=== PATIENT | male | born 1950 | race Caucasian/White ===

== ENCOUNTER 2019-12-13 08:27 | Observation (INO) ==
--- NOTE | 2019-11-27 08:34 | PAT Medication Instructions ---
Medication Instructions Date of Service November 27, 2019 Home Medications Medication Instructions Recorded Judie Gudino #1 ea 11/27/19 allopurinol 300 mg tablet 300 mg PO QAM ascorbic acid (vitamin C) 1,000 mg tablet 500 mg PO BID atorvastatin 20 mg tablet 20 mg PO QAM benazepril 40 mg tablet 40 mg PO QAM loratadine 10 mg tablet 10 mg PO DAILY PRN metoprolol succinate 25 mg capsule sprinkle, ext. release 24 hr 25 mg PO QAM wwtyepem-bmr-aplnd acid 0.4 mg-lycopene 300 mcg-lutein 250 mcg tablet 1 tab PO QAM omeprazole 20 mg capsule,delayed release 20 mg PO QAM DO NOT take the morning of surgery ascorbic acid (vitamin C) 1,000 mg tablet 500 mg PO BID benazepril 40 mg tablet 40 mg PO QAM loratadine 10 mg tablet 10 mg PO DAILY PRN ckghdjin-epg-iutfs acid 0.4 mg-lycopene 300 mcg-lutein 250 mcg tablet 1 tab PO QAM Take morning of surgery With a small sip of water, OTHERWISE NOTHING TO EAT OR DRINK AFTER MIDNIGHT: allopurinol 300 mg tablet 300 mg PO QAM atorvastatin 20 mg tablet 20 mg PO QAM metoprolol succinate 25 mg capsule sprinkle, ext. release 24 hr 25 mg PO QAM omeprazole 20 mg capsule,delayed release 20 mg PO QAM Take evening before surgery ascorbic acid (vitamin C) 1,000 mg tablet 500 mg PO BID loratadine 10 mg tablet 10 mg PO DAILY PRN (if needed) Other Notes If you have any questions please call us at [phone] or [phone] or [phone] or [phone]
--- NOTE | 2019-11-27 11:03 | Anesthesiology Consultation ---
Date of Service November 27, 2019 Assessment & Plan (1) Encounter for pre-operative examination: COVID Status: As of 11/25 nurse assessment, patient denies travel to endemic area, known exposure/sick contacts, symptoms, or testing for coronavirus. Chart Review Chart Review: Acceptable Risk for Surgery and Patient seen in Pre Admission Testing Teaching & Discussion Instructed NPO after midnight before surgery, except medications with 15 cc of water. Medication instructions provided according to the PAT guidelines. History Surgery Operation Date: 12/13/19 11:30 Proposed Procedures p Left Anterior Total Hip Arthroplasty - Jaiden Mccurdy DO Height/Weight Height: 5 ft 10 in Weight: 101.7 kg Allergies Allergy/AdvReac Type Severity Reaction Status Date / Time No Known Allergies Allergy Verified 11/26/19 11:49 Medications Home Medications Medication Instructions Recorded Confirmed Last Taken allopurinol 300 mg tablet 300 mg PO QAM 08/28/19 11/27/19 Unknown ascorbic acid (vitamin C) 1,000 mg 500 mg PO BID 08/28/19 11/27/19 Unknown tablet atorvastatin 20 mg tablet 20 mg PO QAM 08/28/19 11/27/19 Unknown benazepril 40 mg tablet 40 mg PO QAM 08/28/19 11/27/19 Unknown loratadine 10 mg tablet 10 mg PO DAILY PRN 08/28/19 11/27/19 Unknown metoprolol succinate 25 mg capsule 25 mg PO QAM 08/28/19 11/27/19 Unknown sprinkle, ext. release 24 hr lyqdtrkt-mtf-eiqcq acid 0.4 1 tab PO QAM 08/28/19 11/27/19 Unknown mg-lycopene 300 mcg-lutein 250 mcg tablet omeprazole 20 mg capsule,delayed 20 mg PO QAM 08/28/19 11/27/19 Unknown release Wheeled Walker #1 ea 11/27/19 11/27/19 Unknown Past Medical History Medical History (Updated 11/27/19 @ 15:35 by Donnie Mo) Gout Hyperlipidemia Hypertension Obesity Sleep apnea CPAP HS Exercise / Class Metabolic Activity II 4-5 Yardwork/Stairs/Walk up hill (Denies CP or SOB with 1 FOS) Past Surgical History Surgical History History of carpal tunnel release LEFT History of esophagogastroduodenoscopy (EGD) WITH DILITATION History of herniorrhaphy Past Anesthesia History No Hx of Anesthesia Complications and No Family Hx of Anesthesia Complications History of PONV No Hx of PONV and No Hx of Motion Sickness Social History Smoking Status: Former smoker Do You Dip or Chew Tobacco: No Smoking End Date: QUIT 1971 Hx Alcohol Use: Yes Alcohol type: beer alcohol intake frequency: 3 or more drinks per day (some days none; drinks ~5days/wk) Hx Substance Use: No Review of Systems Pt denies any recent chest pain, shortness of breath, palpitations, cough, fever or URI. Physical Exam Vital Signs BP: 136/75 P: 87bpm SPO2: 97% RA T: 98.2 F R: 16 Constitutional + obese ENMT Mouth: + dental restorations (3 crowns); no chipped teeth and no loose teeth Thyromental Distance: > or= 3.5 Finger Breadths (3.5) Mallampati Class: II Neck + short neck, + limited neck extension and + facial hair (medium length sheldon, advised to trim) Respiratory normal respiratory effort Auscultation: lungs clear to auscultation bilaterally Cardiovascular Rate/Rhythm: regular rate and regular rhythm Heart Sounds: no murmur Extremities: no edema Testing Laboratory Results 11/27/19 11:13 11/27/19 11:13 PT 10.9 Seconds (9.0-12.0) 11/27/19 11:13 INR 1.0 (0.9-1.1) 11/27/19 11:13 APTT 29.9 Seconds (21.0-31.0) 11/27/19 11:13 Blood Type A Positive 11/27/19 11:13 Antibody Screen NEGATIVE 11/27/19 11:13 Electrocardiogram Date: 11/27/19 Findings: + NSR @ (79bpm with 1st degree AV block) Chest X-Ray Date: 11/27/19 FINDINGS: The cardiac and mediastinal contours are normal. There is no evidence of focal pulmonary consolidation. There is no evidence of failure. No pleural effusions are visualized.[Degenerative changes are present within the dorsal spine. There is minimal basilar atelectasis. IMPRESSION: No active disease in the chest. Stress Test Date: 11/15/18 Type: exercise Resting EF: 55-59% The stress echo is negative for inducible ischemia. Resting study: No resting LV segmental wall motion abnormalities. RV cavity is moderately dilated. RV systolic function is moderately reduced. No significant valvular disease is present. The proximal ascending thoracic aorta is mildly enlarged.
--- NOTE | 2019-11-27 11:29 | XRay Report ---
XR chest Pre-admission PA/Lat CLINICAL HISTORY: Preoperative chest COMPARISON STUDY: No previous studies for comparison. FINDINGS: The cardiac and mediastinal contours are normal. There is no evidence of focal pulmonary co nsolidation. There is no evidence of failure. No pleural effusions are visualized.[Degenerative hope es are present within the dorsal spine. There is minimal basilar atelectasis. IMPRESSION: No active disease in the chest. ACT 112: Negative or not required by law. Electronically signed by: Jason Murdock M.D. 11/27/2019 11:27 AM
[2019-11-27 12:45] LABS: Basophils # (auto) 0.03 K/uL (0-0.2); Basophils % (auto) 0.4 %; Eosinophils % (auto) 1.4 %; Hematocrit (blood only) 42.2 % (42-52); Hemoglobin 14.7 g/dL (14.0-18.0); Immature Granulocytes # (auto) 0.04 K/uL (0.00-0.02); Immature Granulocytes % (auto) 0.6 %; Lymphocytes # (auto) 1.67 K/uL (1.2-3.4); Lymphocytes % (auto) 23.2 %; Mean Corpuscular Hemoglobin 32.5 pg (25-34); Mean Corpuscular Hgb Conc 34.8 g/dL (32-36); Mean Corpuscular Volume 93.2 fL (80-100); Mean Platelet Volume 10.6 fL (7.4-10.4); Monocytes # (auto) 0.72 K/uL (0.11-0.59); Neutrophils # (auto) 4.65 K/uL (1.4-6.5); Neutrophils % (auto) 64.4 %; Platelet Count 273 K/uL (130-400); RDW Coefficient of Variation 12.9 % (11.5-14.5); Red Blood Count 4.53 M/uL (4.7-6.1); White Blood Count 7.21 K/uL (4.8-10.8)
[2019-11-27 13:00] LABS: Partial Thromboplastin Ratio 1.1; Partial Thromboplastin Time 29.9 Seconds (21.0-31.0); Prothrombin Time 10.9 Seconds (9.0-12.0)
[2019-11-27 13:12] LABS: BUN Creatinine Ratio 12.2 (10-20); Creatinine Clr Calc Pharmacy 95.5 ml/min; Est GFR (African American) 101.8; Est GFR (Non-African American) 87.9; Potassium 4.6 mmol/L (3.5-5.1)
--- NOTE | 2019-11-27 14:38 | Electrocardiogram Report ---
Test Reason : Blood Pressure : / mmHG Vent. Rate : 079 BPM Atrial Rate : 079 BPM P-R Int : 216 ms QRS Dur : 112 ms QT Int : 374 ms P-R-T Axes : 040 -15 037 degrees QTc Int : 428 ms Sinus rhythm with 1st degree A-V block Otherwise normal ECG No previous ECGs available Confirmed by Xander Crisostomo ([id number]) on 11/27/2019 2:37:46 PM Referred By: Jaiden Mccurdy Confirmed By:Xander Crisostomo
--- NOTE | 2019-12-11 07:19 | History & Physical Report ---
Date of Service December 11, 2019 Assessment & Plan (1) Osteoarthritis of left hip: We will proceed with a left anterior total hip arthroplasty. Postoperatively he will be started on aspirin for DVT prophylaxis and kept overnight in the hospital for postoperative medical management. He plans to use energy physical therapy upon discharge. Howie is a low risk for hip replacement surgery without any major comorbidities. Present on Admission?: Yes History of Present Illness Chief Complaint: Primary osteoarthritis of the left hip Primary Care Provider: Mylene Brown DO Howie is a pleasant 68-year-old male who is been having a greater than one-year history of increasing left hip pain. X-rays and clinical examination have been diagnostic for advanced osteoarthritis of the left hip. After failing conservative treatment, he has elected to proceed with a left anterior total hip arthroplasty. Allergies Allergy/AdvReac Type Severity Reaction Status Date / Time No Known Allergies Allergy Verified 11/26/19 11:49 Home Medications Home Medications Medication Instructions Recorded Confirmed Type allopurinol 300 mg tablet 300 mg PO QAM 08/28/19 11/27/19 History ascorbic acid (vitamin C) 1,000 mg 500 mg PO BID 08/28/19 11/27/19 History tablet atorvastatin 20 mg tablet 20 mg PO QAM 08/28/19 11/27/19 History benazepril 40 mg tablet 40 mg PO QAM 08/28/19 11/27/19 History loratadine 10 mg tablet 10 mg PO DAILY PRN 08/28/19 11/27/19 History metoprolol succinate 25 mg capsule 25 mg PO QAM 08/28/19 11/27/19 History sprinkle, ext. release 24 hr rigysbsr-oxo-uvoxx acid 0.4 1 tab PO QAM 08/28/19 11/27/19 History mg-lycopene 300 mcg-lutein 250 mcg tablet omeprazole 20 mg capsule,delayed 20 mg PO QAM 08/28/19 11/27/19 History release Wheeled Walker #1 ea 11/27/19 11/27/19 Rx Past Med/Surg History Medical History Gout Hyperlipidemia Hypertension Obesity Sleep apnea CPAP HS Surgical History History of carpal tunnel release LEFT History of esophagogastroduodenoscopy (EGD) WITH DILITATION History of herniorrhaphy Social History Preferred Language: Jordanian Communication Ability: Effective Foundry Operator Required: No Beliefs That Will Affect Care: None Current Living Situation: Spouse Feels Safe at Home: Yes Smoking Status: Former smoker Second Hand Exposure: Yes (IN SOCIAL EVENTS) ; Hx Alcohol Use: Yes Alcohol type: beer Hx Substance Use: No Review of Systems Review of Systems: All systems reviewed & are unremarkable except as noted in HPI & below Physical Exam Constitutional: WD/WN, vitals as above Eyes: PERRL, conjunctivae normal, anicteric sclerae ENMT: external ear and nose normal, oropharynx normal Neck: trachea midline, no thyromegaly Respiratory: normal respiratory effort Cardiovascular: RRR, no murmur, no edema Gastrointestinal (Abdomen): normal bowel sounds, soft, nontender, no hepatosplenomegaly Musculoskeletal: Physical examination of the left hip reveals decreased range of motion with flexion, internal and external rotation. There is significant groin pain with forced internal rotation of the hip his leg lengths are essentially equal. Psychiatric: A+Ox3, euthymic affect Results & Data Results & Data ([facility]) Diagnostic Findings Radiographs of the left hip and pelvis demonstrate advanced osteoarthritis with joint space narrowing osteophyte formation and gyfq-ol-ijve articulation. PG Care Time/CCT Total # of Minutes Spent Total Time Spent with Patient: Total time spent is greater than 50% in coordination of care (as documented) at patient's floor/unit and/or counseling patient: Coding Level of Care Code 12903 Initial Inpt Care Lvl 3 Diagnoses Osteoarthritis of left hip M16.12
[~2019-12-13 08:27] MED LIST: ACETAMINOPHEN 500 MG TAB PO SCH; CEFAZOLIN 2000MG 2,000 MG/15 ML SYR IV SCH; FAMOTIDINE 20 MG TAB PO SCH; GABAPENTIN 300 MG CAP PO SCH; LR 500ML BOLUS, THEN 15ML/HR IV SCH; LR 60ML/HR IV SCH; ROPIVACAINE 0.5% HCL/PF 150 MG, BUPIVACAINE 0.5% MPF 30 ML, EPINEPHrine 30MG/30ML (OR U... INSTIL SCH; TRANEXAMIC ACID 1,000 MG **IV Intra-op IV SCH; TRANEXAMIC ACID 1,000 MG **IV Pre-op IV SCH; dexAMETHasone 4 MG TAB PO SCH
--- NOTE | 2019-12-13 08:35 | History & Physical Bridge Note ---
Date of Service December 13, 2019 History & Physical Bridge Note I have examined the patient, reviewed the History & Physical and in the interval since the performance of the History & Physical I have noted the following changes of clinical significance: no changes noted
[2019-12-13] MEDS ORDERED: BUPIVACAINE 0.5 % 5 MG/1 ML PF 10ML VIAL ONE (09:03)
[2019-12-13] MEDS ORDERED: MIDAZOLAM HCL 1 MG/ML 2ML VIAL ONE ×3 (09:33→10:14)
[2019-12-13] MEDS ORDERED: fentaNYL citrate 100 MCG/2 ML VIAL ONE (09:33)
[2019-12-13] MEDS ORDERED: ORTHO JOINT ANESTHETIC ONE (09:46)
[2019-12-13] MEDS ORDERED: ePHEDrine sulfate 50 MG/ML AMP IV PRN (10:22)
[2019-12-13] MEDS ORDERED: ATROPINE SULFATE 0.1 MG/ML 10ML SYR IV PRN (10:22)
--- NOTE | 2019-12-13 12:06 | Operative Report ---
PG Post Operative Report Pre & Post Diagnosis Operation Date: 12/13/19 10:20 Pre-Op Diagnosis: LEFT HIP DEGENERATIVE JOINT DISEASE Post-Op Diagnosis: LEFT HIP DEGENERATIVE JOINT DISEASE I identified the patient and participated in the time-out.: Yes Procedure Operation Date: 12/13/19 10:20 Actual Procedures p Left Anterior Total Hip Arthroplasty(Left) - Jaiden Mccurdy DO Surgeon Jaiden Mccurdy DO Leno Sewer Jaiden Verdin PAC Estimated Blood Loss 300 Findings Consistent with Post-Op Diagnosis Specimens Left femoral head Complications none Disposition Disposition: Recovery Room Indications Brian is a pleasant 68-year-old male who presented my office with chronic increasing left hip and groin pain. X-rays and clinical examination were diagnostic for primary osteoarthritis of the left hip. After failing conservative treatment, he elected proceed with a left anterior total hip arthroplasty. Description of Procedure Implants used I used a Biomet Taperloc total hip arthroplasty system with a size 9 high offset micro Taperloc stem, a 50 mm G7 cup with a 25mm screw, an E1 polyethylene liner, a 36 mm ceramic head with a +3 neck. Brian arrived at the hospital for the above procedure. He was seen in the preoperative holding area and the operative extremity was identified and signed. He was given a spinal anesthetic, a preoperative antibiotic, and TXA. He was then taken back to the operating room and laid on the table in the supine position. He was given basic sedation. The operative leg was secured to a Puristst leg positioner. The hip was then prepped and draped in sterile fashion. A timeout was done and the patient and the operative extremity was properly identified. An anterior approach was used. Dissection was taken down through the fascia and the tensor muscle belly was retracted laterally and the rectus was retracted medially. The circumflex vessels were identified and ligated. The capsule was then incised and tagged for later repair. The femoral neck was then cut and the femoral head was removed. The acetabulum was exposed. Time was spent doing a complete circumferential labral release. Sequential reaming of the acetabulum up to a size 49 reamer was done. Final reamings were done under fluoroscopy to ensure appropriate version. A Biomet 50 mm G7 cup was then impacted into place. A single 25 mm screw was placed. The E1 polyethylene liner was then snapped into place. Surrounding soft tissues were then injected with 100 cc of an orthopedic pain control cocktail. The proximal femur was then exposed. Sequential broaching up to a size 9 broach was done. Off that broach a size 36 head with a +3 neck was trialed. The hip was reduced and fluoroscopic images showed anatomic alignment of the implants in acceptable length. The broach was removed. The final size 9 high offset micro Taperloc stem was then impacted into place. A ceramic 36 mm head with a +3 neck was then impacted onto the stem and the hip was reduced. Final fluoroscopic images showed anatomic alignment of the hip. The capsule was then closed with #1 Vicryl suture. A dilute betadyne lavage was then done for 3 minutes. The joint was then irrigated with normal saline solution. The fascia was closed with #1 PDS suture. Skin was closed with 2-0 Vicryl, trudy, and a Mary VAC dressing. He was then transferred to a hospital bed and taken to the post anesthesia care unit in stable condition. He tolerated the procedure well. Jaiden Verdin PA-C, was present for the entire procedure. He was critical for patient positioning, prepping, draping, retraction exposure, wound closure and application of sterile dressing. I attest to the content of the Intraoperative Record and any orders documented therein. Any exceptions are noted below.
[2019-12-13] MEDS ORDERED: PROPOFOL IV EMULSION 10 MG/ML 20 ML VIAL IV ONE (12:14)
--- NOTE | 2019-12-13 12:59 | Anesthesiology Progress Note ---
Date of Service December 13, 2019 Anesthesia Post Procedure Vital Signs Vital Signs: Temp Pulse Pulse Resp BP BP Pulse Ox 12/13/19 12:50 72 16 131/76 97 12/13/19 12:40 69 16 132/73 97 12/13/19 12:30 36.4 C L 73 16 136/86 99 12/13/19 09:12 36.7 C 83 20 156/89 H 98 Transfer of Care Handoff Completed per policy Notes Mental Status: alert / awake / arousable and participated in evaluation Nausea / Vomiting: adequately controlled Pain: adequately controlled Airway Patency, RR, SpO2: stable & adequate BP & HR: stable & adequate Hydration State: stable & adequate Neuraxial Anesthesia: was administered and sensory block is resolving Anesthetic Complications: no major complications apparent and Pt Satisfied with anesthetic care
--- NOTE | 2019-12-13 13:15 | XRay Report ---
AP PELVIS, CROSSTABLE LATERAL LEFT HIP History: Left total hip arthroplasty. Degenerative arthritis. Postop. FINDINGS: The patient is status post a left total hip arthroplasty. The hardware is intact. No fractu re or dislocation. Skin trudy and surgical drains are in place. IMPRESSION: Left total hip arthroplasty. No evidence for hardware complication. ACT 112: Negative or not required by law. Electronically signed by: Jose Durant M.D. 12/13/2019 1:13 PM
[2019-12-13] MEDS ORDERED: METOCLOPRAMIDE HCL INJ 5 MG/ML 2 ML VIAL IV PRN (13:30)
[2019-12-13] MEDS ORDERED: HYDROmorphone INJ 0.5 MG/0.5 ML SYR IV PRN (13:30)
[2019-12-13] MEDS ORDERED: bisacodyL 10 MG SUPP PR PRN (13:30)
[2019-12-13] MEDS ORDERED: LORATADINE 10 MG TAB PO PRN (13:30)
[2019-12-13] MEDS ORDERED: ONDANSETRON INJ 2 MG/ML 2 ML VIAL IV PRN (13:30)
[2019-12-13] MEDS ORDERED: [UNRECOGNIZED DRUG - OTHER] SCH (13:30)
[2019-12-13] MEDS ORDERED: OXYCODONE HCL IR 5 MG TAB (IMMEDIATE RELEASE) PO PRN (13:30)
[2019-12-13] MEDS ORDERED: WALKER SCH (13:30)
[2019-12-13] MEDS ORDERED: NALOXONE HCL 0.4 MG/1 ML VIAL/CARP IV PRN (13:30)
[2019-12-13] MEDS ORDERED: MAGNESIUM HYDROXIDE SUSP 30 ML UDC PO PRN (13:30)
[2019-12-13] MEDS ORDERED: SODIUM CHLORIDE 0.9% 1000ML 1,000 ML IV SCH (13:45)
[2019-12-13] MEDS ORDERED: LIDOCAINE HCL 2% 2 ML VIAL/AMP(20MG/ML) INFIL ONE (14:31)
[2019-12-13] MEDS: ACETAMINOPHEN 500 MG TAB PO SCH ×2 (14:39→21:53)
[2019-12-13] MEDS: KETOROLAC TROMETHAMINE 15 MG/ML VIAL IV SCH ×2 (14:40→19:27)
--- NOTE | 2019-12-13 14:50 | Fluoroscopy Report ---
FL hip LT 1V CLINICAL HISTORY: LEFT ANTERIOR HIP COMPARISON STUDY: None. FLUOROSCOPY TIME: 27 seconds. FINDINGS: 2 fluoroscopic spot images of the left hip demonstrate a left total hip arthroplasty. The h ardware appears intact. No fracture or dislocation. IMPRESSION: Fluoroscopy provided for left total hip arthroplasty. ACT 112: Negative or not required by law. Electronically signed by: Jose Durant M.D. 12/13/2019 2:49 PM
[2019-12-13] MEDS: CEFAZOLIN 2000MG 2,000 MG/15 ML SYR IV SCH (17:39)
[2019-12-13] MEDS: DOCUSATE SODIUM 100 MG CAP PO SCH (20:36)
[2019-12-13] MEDS: ASPIRIN 81 MG ECTAB PO SCH (20:37)
[2019-12-13] MEDS: ASCORBIC ACID 500 MG TAB PO SCH (20:37)
[2019-12-13] MEDS ORDERED: SENNA 8.6 MG TAB PO SCH (21:00)
[2019-12-14] MEDS: KETOROLAC TROMETHAMINE 15 MG/ML VIAL IV SCH ×2 (02:54→09:35)
[2019-12-14] MEDS: CEFAZOLIN 2000MG 2,000 MG/15 ML SYR IV SCH (02:54)
[2019-12-14] MEDS: ACETAMINOPHEN 500 MG TAB PO SCH (05:51)
--- NOTE | 2019-12-14 06:23 | Orthopedic Progress Note ---
Date of Service December 14, 2019 Assessment & Plan (1) History of total left hip arthroplasty: Overall he is doing very well. Is not having much pain in the left hip. He will be seen by physical therapy this morning for ambulation and range of motion exercises. He can be discharged home later today. He is on aspirin for DVT prophylaxis. He will follow-up with orthopedics in 2 weeks. Present on Admission?: Yes Subjective Howie was seen and examined at bedside this morning. Overall he is doing very well. He is Pain in the left hip. He has been up and ambulating around the nurses station. He has no complaints. Physical Exam Musculoskeletal: On physical examination of the left hip, the Mary VAC dressing is to suction. His leg lengths are equal. He has active dorsiflexion and plantarflexion of his left ankle. Sensation is intact. Results & Data ([facility]) Vital Signs (Past 12 Hours) Vital Signs Temp Pulse Resp BP Pulse Ox 12/14/19 03:30 36.8 C 79 14 146/75 H 98 12/13/19 23:12 36.8 C 92 H 14 148/78 H 98 12/13/19 19:07 36.7 C 102 H 16 132/91 Laboratory Results H & H 11/27/19 Range/Units 11:13 Hgb 14.7 (14.0-18.0) g/dL Hct 42.2 (42-52) % Coagulation 11/27/19 Range/Units 11:13 INR 1.0 (0.9-1.1) Diagnostic Findings Postoperative x-rays of the left hip show the prosthesis to be in anatomic alignment without any evidence of fracture, dislocation, or loosening. PG Care Time/CCT Total # of Minutes Spent Total Time Spent with Patient: Total time spent is greater than 50% in coordination of care (as documented) at patient's floor/unit and/or counseling patient: Coding Level of Care Code None Diagnoses History of total left hip arthroplasty Z96.642
--- NOTE | 2019-12-14 06:24 | Discharge Summary ---
Date of Service December 14, 2019 Admission HPI Per Admitting Provider Howie is a pleasant 68-year-old male who is been having a greater than one-year history of increasing left hip pain. X-rays and clinical examination have been diagnostic for advanced osteoarthritis of the left hip. After failing conservative treatment, he has elected to proceed with a left anterior total hip arthroplasty. Principal Diagnosis Left total hip arthroplasty Discharge Data Allergies Allergy/AdvReac Type Severity Reaction Status Date / Time No Known Allergies Allergy Verified 12/13/19 09:33 Consultations 12/14/19 08:00 Consult Case Management - Discharge Planning Routine Procedures Performed Operation Date: 12/13/19 10:20 Actual Procedures p Left Anterior Total Hip Arthroplasty(Left) - Jaiden Mccurdy DO Ordered Studies 12/13/19 10:20 FL fluoroscopy <1hr Routine FL hip LT 1V Routine Hospital Course (1) History of total left hip arthroplasty: On December 13, [address] [facility] and underwent a left anterior total hip arthroplasty without complication. He had a spinal anesthetic. Postoperatively he was started on aspirin for DVT prophylaxis and transferred to the general orthopedic floors. His hospital course was uneventful. On postop day #1 his H&H was stable and his pain was well controlled. He was able to participate well with physical therapy doing ambulation and range of motion exercises. He was then discharged home. He will follow-up with orthopedics in 2 weeks. Total Time Total Time Spent Total Time Spent (In Minutes): 20 Discharge Plan Discharge Items Patient Disposition: Home - Home Health Services Reason For Visit: LEFT HIP DEGENERATIVE JOINT DISEASE Discharge Diagnosis: Left total hip arthroplasty Activity: As commented below Non-emergency contact: Surgeon Call non-emergency contact if: your wound has increased redness and your wound has increased drainage Follow-up/Referrals: Mylene Brown DO [Primary Care Provider] - Diet: Regular Addtl Attending Provider Instructions: Activity and Therapy Recommendations: * If you are using [facility] then therapy will be provided at your home until they feel you have accomplished all of your goals. * If you are using [facility] then Physical Therapy will be provided until they feel you are ready to start Outpatient Physical Therapy. * If you are not using home therapy then Outpatient Physical Therapy should start about 3-5 days from your day of surgery. Therapy will last about 6-10 weeks * You were shown a series of exercises in the hospital. Do these exercises three times each day including the exercises you were shown in physical therapy. * Get up and walk several times each day.~ For the first four weeks, try not to stand or walk for more than one hour at a time. If you do stand or walk for more than one hour, you will not hurt anything, but your leg will likely swell.~~ * As you feel comfortable, you may change from the walker or crutches to a cane and~then to independent walking. Medications: * Narcotic You will likely be sent home from the hospital with a prescription for the narcotic pain medication that worked best throughout your stay. * Aspirin Most patients will be required to take Aspirin 81mg twice a day for 6 weeks after surgery. This is obtained [id number] and a prescription is not necessary. * Other medications may be prescribed for specific circumstances. If you have any questions, please call the office at . * Resume previous home medications unless otherwise instructed TEDs/Elastic Stockings: The white elastic stockings help limit swelling and prevent blood clots from forming in your legs. The more you wear them, the more they work. Wear them for six weeks. Dressing Care: You will likely have a purple VAC dressing after surgery. This dressing will keep the incision dry and promote early healing. After about 7 days the batteries will wear out and the VAC will lose suction. Simply remove the dressing at that time and throw everything away, including the small suction machine. Then, you may leave the trudy open to air or cover them with a dry dressing so they do not rub on your pants. The trudy will be removed at your 2 week follow-up appointment. Showering: You may shower immediately with the purple VAC dressing. Let the shower spray hit your opposite side and slowly pat the plastic dry. Do not soak the dressing. After the dressing is removed you may shower normally with the trudy exposed. Let soapy water run over the trudy and pat them dry. Things To Watch For: * Drainage from the incision site that occurs more than one week after your surgery. * Increased redness at the incision site. * Fever above 102 degrees Fahrenheit. * Unusual chest pain or shortness of breath. * Call [facility] at with any of the above problems Follow-Up Visit: Follow-up with Dr. Mccurdy's PA (Jaiden Verdin) 2-3 weeks after your day of surgery. He will remove your trudy and answer any questions. If you have any additional questions or concerns, Dr Mccrudy is usually in the office at the same time and will be available An appointment was probably scheduled when you signed-up for surgery in the office. If you have any questions call Office Instructions: More detailed instructions as well as Frequently Asked Questions were provided in a folder by our office when you signed-up for surgery. Please review these instructions when you get home. If you have any further questions or concerns, please feel free to call the office at [phone] Pending Studies at Discharge: No Stand-Alone Forms: My [employer] Smoking Cessation Medications and DC Order Prescriptions: New oxycodone 5 mg Tablet 5 mg PO Q4H PRN (Reason: pain) Qty: 30 RF: 0 aspirin 81 mg Tablet,Delayed Release (Dr/Ec) 81 mg PO BID 42 Days Qty: 0 RF: 0 Continued allopurinol 300 mg tablet 300 mg PO QAM RF: 0 atorvastatin 20 mg tablet 20 mg PO QAM RF: 0 benazepril 40 mg tablet 40 mg PO QAM RF: 0 loratadine [Allergy Relief (loratadine)] 10 mg tablet 10 mg PO DAILY PRN (Reason: Allergy Symptoms) RF: 0 metoprolol succinate 25 mg capsule,sprinkle,ER 24hr 25 mg PO QAM RF: 0 omeprazole 20 mg capsule,delayed release(DR/EC) 20 mg PO QAM RF: 0 ascorbic acid (vitamin C) 1,000 mg tablet 500 mg PO BID RF: 0 Centrum Silver 0.4-300-250 mg-mcg-mcg tablet 1 tab PO QAM RF: 0 (DME) Wheeled Walker Misc See Rx Instructions .ROUTE .MEDSUPPLY Qty: 1 RF: 0 Discharge Orders: Discharge Order (Routine); Ordered 12/14/19 Ordered By: Jaiden Mccurdy Admission Data Admit Date/Time: 12/13/19 12:34 Attending Provider: Jaiedn Mccurdy Admit Provider: Jaiden Mccurdy Primary Care Provider: Mylene Brown Coding Level of Care Code D/C Day Management <30 mins Diagnoses History of total left hip arthroplasty Z96.642
[2019-12-14 07:08] LABS: Eosinophils # (auto) 0.01 K/uL (0-0.5); Eosinophils % (auto) 0.1 %; Hematocrit (blood only) 38.7 % (42-52); Hemoglobin 13.2 g/dL (14.0-18.0); Immature Granulocytes # (auto) 0.03 K/uL (0.00-0.02); Immature Granulocytes % (auto) 0.2 %; Lymphocytes # (auto) 1.38 K/uL (1.2-3.4); Lymphocytes % (auto) 10.2 %; Mean Corpuscular Hemoglobin 31.9 pg (25-34); Mean Corpuscular Hgb Conc 34.1 g/dL (32-36); Mean Corpuscular Volume 93.5 fL (80-100); Mean Platelet Volume 10.2 fL (7.4-10.4); Monocytes % (auto) 9.6 %; Neutrophils % (auto) 79.9 %; Platelet Count 303 K/uL (130-400); RDW Coefficient of Variation 12.8 % (11.5-14.5); Red Blood Count 4.14 M/uL (4.7-6.1); White Blood Count 13.52 K/uL (4.8-10.8)
[2019-12-14 07:35] LABS: BUN Creatinine Ratio 18.1 (10-20); Calcium 8.8 mg/dl (8.5-10.1); Creatinine Clr Calc Pharmacy 83.1 ml/min; Est GFR (African American) 90.2; Est GFR (Non-African American) 77.8; Potassium 4.1 mmol/L (3.5-5.1)
[2019-12-14] MEDS ORDERED: dexAMETHasone 4 MG TAB PO SCH (08:00)
[2019-12-14] MEDS ORDERED: METOPROLOL SUCC 25MG EXT REL TAB PO SCH (09:00)
[2019-12-14] MEDS ORDERED: PANTOprazole 40 MG TAB PO SCH (09:00)
[2019-12-14] MEDS ORDERED: allopurinoL 300 MG TAB PO SCH (09:00)
[2019-12-14] MEDS ORDERED: ENALAPRIL MALEATE 10 MG TAB PO SCH (09:00)
[2019-12-14] MEDS ORDERED: MULTIVITAMIN TAB PO SCH (09:00)
[2019-12-14] MEDS ORDERED: ATORVASTATIN 20 MG TAB PO SCH (09:00)
[2019-12-14] MEDS: ASPIRIN 81 MG ECTAB PO SCH (09:30)
[2019-12-14] MEDS: DOCUSATE SODIUM 100 MG CAP PO SCH (09:30)
[2019-12-14] MEDS: ASCORBIC ACID 500 MG TAB PO SCH (09:34)
== END 2019-12-14 10:32 | disposition home health service (06) ==
LOC: ASU 08:27 → 3E 12:34 → INTOOBSV 12:34

== ENCOUNTER 2020-02-05 15:25 | Inpatient (IN) ==
[2020-02-05] MEDS ORDERED: HYDROmorphone INJ 1 MG/ML SYRINGE IV STA ×2 (15:59→16:44)
--- NOTE | 2020-02-05 16:05 | Emergency Department Note ---
History of Present Illness General Chief complaint: Fall Stated complaint: FALL, L LEG PAIN Time Seen by Provider: 02/05/20 15:48 History of Present Illness Maximum Pain Intensity: 2 This is a 69-year-old male that presents to the emergency department via ambulance accompanied by with complaints "fall, left leg pain". The patient states that earlier today he was at home, in his garage on a ladder about 2 feet off of the ground when he notes that he missed the bottom rung and stepped backwards and noted that he then fell. He believes he struck his head but now notes pain in the left hip and left thigh region that he currently rates as a 2/10 but prior to arrival was much worse. He has received a total of 200 mcg of fentanyl in route. The fall was suspected to be around 1 PM today. Patient denies any recent fevers or chills. He denies any current chest or abdominal pain. No back pain. He states his only pain is in the left thigh region extending from the left hip to the left knee. He underwent total left hip arthroplasty on 12/13/[address] Mccurdy here at [facility]. Home Medications Home Medications Medication Instructions Recorded Confirmed Type allopurinol 300 mg tablet 300 mg PO QAM 08/28/19 02/05/20 History ascorbic acid (vitamin C) 1,000 mg 500 mg PO BID 08/28/19 02/05/20 History tablet atorvastatin 20 mg tablet 20 mg PO QAM 08/28/19 02/05/20 History benazepril 40 mg tablet 40 mg PO QAM 08/28/19 02/05/20 History loratadine 10 mg tablet 10 mg PO DAILY PRN 08/28/19 02/05/20 History metoprolol succinate 25 mg capsule 25 mg PO QAM 08/28/19 02/05/20 History sprinkle, ext. release 24 hr fefaavhc-jkb-myrsi acid 0.4 1 tab PO QAM 08/28/19 02/05/20 History mg-lycopene 300 mcg-lutein 250 mcg tablet omeprazole 20 mg capsule,delayed 20 mg PO QAM 08/28/19 02/05/20 History release Allergies Allergy/AdvReac Type Severity Reaction Status Date / Time No Known Allergies Allergy Verified 02/05/20 17:17 Past Med/Surg History Medical History Gout Hyperlipidemia Hypertension Obesity Sleep apnea CPAP HS Surgical History History of carpal tunnel release LEFT History of esophagogastroduodenoscopy (EGD) WITH DILITATION History of herniorrhaphy History of total left hip arthroplasty (~12/2019) Social History Smoking Status: Former smoker Second Hand Exposure: Yes (social occasions); Hx Alcohol Use: Yes Alcohol type: beer Hx Substance Use: No Preferred Language: Bengali Communication Ability: Effective 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 Required: No Beliefs That Will Affect Care: None Current Living Situation: Spouse Feels Safe at Home: Yes Review of Systems A total of 10 systems reviewed and were otherwise negative Physical Exam Vital Signs Vital Signs - 24 hr 02/05/20 15:46 02/05/20 16:35 02/05/20 17:18 Temperature 37.0 C Temperature Source Oral Pulse Rate 84 93 H Pulse Rate from SpO2 Sensor 94 H Respiratory Rate 20 7 L Respiratory Effort / Characteristics Non-Labored Spontaneous Respiratory Depth Normal Respiratory Pattern Regular Blood Pressure 154/82 H Blood Pressure Mean 106 Pulse Oximetry 98 Oxygen Delivery Method Room Air Room Air Room Air Sepsis Recent Fever Within 48 Hours No Sepsis New/Unexplained Change in Mental Status N/A Sepsis Action Taken by Nursing No Action Required VITAL SIGNS - Vital signs and nursing notes were reviewed. Hypertensive, otherwise stable. GENERAL -69-year-old male appearing his stated age. Communicates well with provider and answers questions appropriately. SKIN - Gross examination of the entire body surface demonstrates no lacerations to the body surface. No evidence of open fracture to the left leg. There is edema circumferentially noted to the left leg without any bruising at this time. There is also dried blood in the dependent portion of the patient's right external ear. HEAD - Normocephalic, Atraumatic. No Zamora's Sign or Raccoon's Eyes. No depressed skull fractures palpable. EYES - PERRL with EOMI bilaterally. Without subconjunctival hemorrhage. Palpebral conjunctiva pink and moist with no injection. EARS - No deformities of external structures noted on gross examination bilaterally. No hemotympanum present. No tympanic perforation noted. Handle of malleus, umbo, cone of light, pars tensa/flaccid all easily visualized. NOSE - Midline and without cyanosis. No epistaxis or clear watery discharge noted. Septum midline without deviation. No septal hematoma noted. No overlying ecchymosis noted. MOUTH/OROPHARYNX - Without perioral cyanosis. Tongue midline with equal elevation of palate bilaterally. No blood noted in the oropharynx. No tonsillar hypertrophy, erythema, or exudates noted. No dental fractures noted. NECK -no C-spine tenderness. LUNGS - Chest wall symmetric without accessory muscle use, intercostals retractions, or central cyanosis. No tenderness with deep inspiration noted against the examiner's applied pressure to the lateral chest savage. Normal vesicular breath sounds CTA B/L. No wheezes, rales, or rhonchi appreciated. CARDIAC - RRR with S1/S2. No murmur, rubs, or gallops appreciated. ABDOMEN - Abdominal contour normal and without pulsations or visible masses. BS normoactive all four quadrants. No rebound tenderness or guarding noted. Negative Maxi's or Lam Shaver's Signs. No tenderness, palpable masses, hepatosplenomegaly, or ascites noted. EXTREMITIES - No gross deformities noted of the extremities. There is tenderness to palpation overlying the patient's left lateral hip extending to the left knee with circumferential edema noted when compared to the right. Patient is very tender on the left lateral femur region. +5/5 strength noted in UE/LE bilaterally. Left lower extremity dorsalis pedis pulse within normal limits. Patient is able to plantarflex and dorsiflex the left foot/ankle. Left leg is shortened and externally rotated. Cap refill of the toes of the left foot within normal limits as well. No tenderness to palpation distal to the left knee. NEUROLOGIC - Cranial nerves II through XII grossly intact. Sensory intact to light touch throughout. PSYCH - A&Ox3 and cooperates fully with examiner. Pt is very pleasant and interacts well with examiner. Course Administered Medications Ascorbic Acid (Vitamin C) 500 mg PO BID [facility] Stop: 03/06/20 20:59 Last Admin: 02/05/20 21:28 Dose: 500 mg Documented by: [id number] Docusate Sodium (Colace) 100 mg PO BID [facility] Stop: 03/06/20 20:59 Last Admin: 02/05/20 21:28 Dose: 100 mg Documented by: [id number] Sodium Chloride (Nss 1000ml) 1,000 mls @ 80 mls/hr IV .[id number] [facility] Stop: 03/06/20 17:29 Last Admin: 02/05/20 21:27 Dose: 80 mls/hr Documented by: [id number] Discontinued Medications Hydromorphone HCl (Dilaudid) 1 mg IV NOW STA Stop: 02/05/20 16:00 Last Admin: 02/05/20 16:13 Dose: 1 mg Documented by: [id number] Hydromorphone HCl (Dilaudid) 1 mg IV NOW STA Stop: 02/05/20 16:45 Last Admin: 02/05/20 16:45 Dose: 1 mg Documented by: [id number] Ondansetron HCl (Zofran) 4 mg IV NOW STA Stop: 02/05/20 17:41 Last Admin: 02/05/20 17:43 Dose: 4 mg Documented by: [id number] Medical Decision Making Laboratory Data Result diagrams: 02/05/20 16:16 02/05/20 16:16 Lab Results 02/05/20 02/05/20 02/05/20 Range/Units 16:16 16:16 16:16 WBC 14.91 H (4.8-10.8) K/uL RBC 4.17 L (4.7-6.1) M/uL Hgb 13.1 L (14.0-18.0) g/dL Hct 37.6 L (42-52) % MCV 90.2 (80-100) fL MCH 31.4 (25-34) pg MCHC 34.8 (32-36) g/dL RDW Std Deviation 42.4 (36.4-46.3) fL RDW Coeff of Maria 13.0 (11.5-14.5) % Plt Count 283 (130-400) K/uL MPV 10.2 (7.4-10.4) fL Immature Gran % (Auto) 0.3 % Neut % (Auto) 80.9 % Lymph % (Auto) 11.1 % Boyle % (Auto) 6.4 % Eos % (Auto) 1.1 % Baso % (Auto) 0.2 % Neut # (Auto) 12.07 H (1.4-6.5) K/uL Lymph # (Auto) 1.65 (1.2-3.4) K/uL Boyle # (Auto) 0.95 H (0.11-0.59) K/uL Eos # (Auto) 0.16 (0-0.5) K/uL Baso # (Auto) 0.03 (0-0.2) K/uL Immature Gran # (Auto) 0.05 H (0.00-0.02) K/uL PT 11.5 (9.0-12.0) Seconds INR 1.1 (0.9-1.1) APTT 28.2 (21.0-31.0) Seconds PTT Ratio 1.0 Sodium 132 L (136-145) mmol/L Potassium 4.0 (3.5-5.1) mmol/L Chloride 101 (98-107) mmol/L Carbon Dioxide 24 (21-32) mmol/L Anion Gap 6.0 (3-11) BUN 12 (7-18) mg/dl Creatinine 0.84 (0.6-1.4) mg/dl Est Cr Clr Drug Dosing 104.0 ml/min Est GFR ( Amer) 102.1 Est GFR (Non-Af Amer) 88.1 BUN/Creatinine Ratio 13.7 (10-20) Glucose 112 H (70-99) mg/dl Calcium 8.7 (8.5-10.1) mg/dl Magnesium 1.7 L (1.8-2.4) mg/dl Total Bilirubin 0.5 (0.2-1) mg/dl AST 15 (15-37) U/L ALT 25 (12-78) U/L Alkaline Phosphatase 65 (45-117) U/L Total Protein 6.5 (6.4-8.2) gm/dl Albumin 3.5 (3.4-5.0) gm/dl Globulin 3.0 (2.5-4.0) gm/dl Albumin/Globulin Ratio 1.2 (0.9-2) Blood Type Antibody Screen 02/05/20 Range/Units 16:16 WBC (4.8-10.8) K/uL RBC (4.7-6.1) M/uL Hgb (14.0-18.0) g/dL Hct (42-52) % MCV (80-100) fL MCH (25-34) pg MCHC (32-36) g/dL RDW Std Deviation (36.4-46.3) fL RDW Coeff of Maria (11.5-14.5) % Plt Count (130-400) K/uL MPV (7.4-10.4) fL Immature Gran % (Auto) % Neut % (Auto) % Lymph % (Auto) % Boyle % (Auto) % Eos % (Auto) % Baso % (Auto) % Neut # (Auto) (1.4-6.5) K/uL Lymph # (Auto) (1.2-3.4) K/uL Boyle # (Auto) (0.11-0.59) K/uL Eos # (Auto) (0-0.5) K/uL Baso # (Auto) (0-0.2) K/uL Immature Gran # (Auto) (0.00-0.02) K/uL PT (9.0-12.0) Seconds INR (0.9-1.1) APTT (21.0-31.0) Seconds PTT Ratio Sodium (136-145) mmol/L Potassium (3.5-5.1) mmol/L Chloride (98-107) mmol/L Carbon Dioxide (21-32) mmol/L Anion Gap (3-11) BUN (7-18) mg/dl Creatinine (0.6-1.4) mg/dl Est Cr Clr Drug Dosing ml/min Est GFR ( Amer) Est GFR (Non-Af Amer) BUN/Creatinine Ratio (10-20) Glucose (70-99) mg/dl Calcium (8.5-10.1) mg/dl Magnesium (1.8-2.4) mg/dl Total Bilirubin (0.2-1) mg/dl AST (15-37) U/L ALT (12-78) U/L Alkaline Phosphatase (45-117) U/L Total Protein (6.4-8.2) gm/dl Albumin (3.4-5.0) gm/dl Globulin (2.5-4.0) gm/dl Albumin/Globulin Ratio (0.9-2) Blood Type A Positive Antibody Screen NEGATIVE Imaging Data Radiologist's Impression: XR chest 1V portable CLINICAL HISTORY: Chest pain status post trauma COMPARISON STUDY: 11/27/2019 FINDINGS: The study is performed in a supine fashion. The cardiac and mediastinal contours appear normal given the technique. There is no focal pulmonary consolidation. There are no significant pleural effusions. There is no pneumothorax identified on the supine study.[ IMPRESSION: No active disease in the chest. ACT 112: Negative or not required by law. Electronically signed by: Jason Murdock M.D. 02/05/2020 5:00 PM SINGLE VIEW PELVIS; 2 VIEWS LEFT FEMUR CLINICAL HISTORY: Fall. Left leg injury. FINDINGS: An AP supine view of the pelvis with AP and crosstable lateral views of the left femur are obtained. Comparison is made to study dated 12/13/2019. The skeletal structures are heterogeneously osteopenic. No fracture is seen involving the right hip or the bony pelvis. A bipolar left hip arthroplasty is in near-anatomic alignment. There is a comminuted spiral fracture of the proximal left femoral shaft located at and below the arthroplasty stem. There are laterally distracted fragments. The distal femoral shaft is distracted laterally by approximately 2.5 cm. There is also overriding of the fragments. Overlying soft tissue edema is noted. The left knee joint is grossly maintained. Mild degenerative joint space narrowing seen in the right hip. IMPRESSION: 1. There is a comminuted, distracted, and overriding spiral fracture of the proximal femoral shaft as above. This is located at and below the level of the left hip arthroplasty stem. 2. No fracture is seen involving the right hip or the bony pelvis. Electronically signed by: Ron Bryant M.D. 02/05/2020 5:00 PM SINGLE VIEW PELVIS; 2 VIEWS LEFT FEMUR CLINICAL HISTORY: Fall. Left leg injury. FINDINGS: An AP supine view of the pelvis with AP and crosstable lateral views of the left femur are obtained. Comparison is made to study dated 12/13/2019. The skeletal structures are heterogeneously osteopenic. No fracture is seen involving the right hip or the bony pelvis. A bipolar left hip arthroplasty is in near-anatomic alignment. There is a comminuted spiral fracture of the proximal left femoral shaft located at and below the arthroplasty stem. There are laterally distracted fragments. The distal femoral shaft is distracted laterally by approximately 2.5 cm. There is also overriding of the fragments. Overlying soft tissue edema is noted. The left knee joint is grossly maintained. Mild degenerative joint space narrowing seen in the right hip. IMPRESSION: 1. There is a comminuted, distracted, and overriding spiral fracture of the proximal femoral shaft as above. This is located at and below the level of the left hip arthroplasty stem. 2. No fracture is seen involving the right hip or the bony pelvis. Electronically signed by: Ron Bryant M.D. 02/05/2020 5:[address] head/brain wo con CLINICAL HISTORY: Head pain status post trauma COMPARISON STUDY: No previous studies for comparison. TECHNIQUE: Axial CT of the brain is performed from the vertex to the skull base. IV contrast was not administered for this examination. A dose lowering technique was utilized adhering to the principles of ALARA. CT DOSE: FINDINGS: No intra or extra-axial mass lesions are visualized. There is no CT evidence of acute cortical infarction. There is no evidence of midline shift. There is no acute hemorrhage. No calvarial fractures are visualized. There is no evidence of pathologic ventricular dilatation. There is no evidence of acute sinusitis IMPRESSION: No acute intracranial findings ACT 112: Negative or not required by law. Electronically signed by: Jason Murdock M.D. 02/05/2020 5:[address] OF THE CERVICAL SPINE CLINICAL HISTORY: Neck pain status post trauma COMPARISON STUDY: MRI the cervical spine dated 04/21/2013 CT DOSE: 1100.84 mGy.cm TECHNIQUE: CT scan of the cervical spine was performed from the skull base to the thoracic inlet. Images are reviewed in the axial, sagittal, and coronal planes. IV contrast was not administered for this examination. A dose lowering technique was utilized adhering to the principles of ALARA. FINDINGS: The visualized portions of the lung apices reveal no evidence of pneumothorax. The prevertebral soft tissues are normal. No fractures or subluxations are visualized. There are multilevel degenerative changes IMPRESSION: No evidence of acute fracture or traumatic subluxation. ACT 112: Negative or not required by law. Electronically signed by: Jason Murdock M.D. 02/05/2020 5:15 PM [facility] Narrative Patient was seen and evaluated as above in room C8. Review was performed of nursing notes and vital signs. I did review pertinent previous visits and p atient history. After obtaining a thorough history and physical examination the above work up was performed. He presents to us today via ambulance status post fall. This appears to be a low-energy mechanism of injury however he does have left hip pain that is isolated. History is significant for that of total left hip arthroplasty December 12 of this year. The incision site is well-healed and there is no evidence open fracture. There is marked edema to the left proximal thigh circumferentially. No evidence of compartment syndrome at this time and he is neurovascularly intact distal to the suspected periprosthetic hip fracture. Chest x-ray as well as pelvis and femur x-ray were obtained. There is a comminuted, distracted and overriding spiral fracture of the proximal femoral shaft. This is located at and below the level of the left hip arthroplasty stem. A CT scan was also obtained of the head and C-spine secondary to mechanism of injury. Results of these as above. This was nega tive. Based on labs were also obtained. Leukocytosis 14.91 secondary to likely acute phase reactant fracture. Hemoglobin 13.1. No evidence of emergent metabolic disturbance. Sodium 132. No coagulopathy identified with PT/INR. Type and screen ordered. Patient did receive 200 mcg of fentanyl in route and received additional IV Dilaudid here. Shortly after the x-rays were taken I did reach out to the on-call orthopedic surgeon, Dr. Brooks. He reviewed the x- rays and called back and will admit the patient and Dr. Mccurdy will see the patient later today. Patient was very happy with this and I also discussed options in regard to Carmona catheter versus bedside urinal and the patient pref ers a Carmona catheter. This was ordered. Please refer to further documentation regarding his stay. While in the department, I personally reevaluated the patient several times and each time the patient was found to be resting comfortably after the pain medication. The patient was educated upon management, educated upon todays findings/results. Case was discussed with the attending physician. In the evaluation and treatment of this patient, the following differential diagnoses were considered: Hip Fracture, Hip Dislocation, Greater Trochanteric Bursitis, Musculoskeletal Pain, Lumbar Radiculopathy, among others. Impression & Plan Periprosthetic fracture of hip, Fall from ladder Discharge Plan Visit Data *Final* Discharge Date/Time: 02/05/20 18:41 Chief Complaint: Fall Stated Complaint: FALL, L LEG PAIN ED Provider: Bud Whitley ED Midlevel Provider: Louie Plascencia Discharge Problem: Periprosthetic fracture of hip, Fall from ladder Patient Disposition: Admitted As Inpatient Condition: Good Discharge Instructions Interventions: ED Discharge Assessment Last Done: 02/05/20 18:41 Discharge Problem: Periprosthetic fracture of hip Qualifiers: Encounter type: initial encounter Qualified Code(s): M97.8XXA - Periprosthetic fracture around other internal prosthetic joint, initial encounter Fall from ladder Qualifiers: Encounter type: initial encounter Qualified Code(s): W11.XXXA - Fall on and from ladder, initial encounter
[2020-02-05 16:27] LABS: Basophils # (auto) 0.03 K/uL (0-0.2); Basophils % (auto) 0.2 %; Eosinophils # (auto) 0.16 K/uL (0-0.5); Eosinophils % (auto) 1.1 %; Hematocrit (blood only) 37.6 % (42-52); Hemoglobin 13.1 g/dL (14.0-18.0); Immature Granulocytes # (auto) 0.05 K/uL (0.00-0.02); Immature Granulocytes % (auto) 0.3 %; Lymphocytes # (auto) 1.65 K/uL (1.2-3.4); Lymphocytes % (auto) 11.1 %; Mean Corpuscular Hemoglobin 31.4 pg (25-34); Mean Corpuscular Hgb Conc 34.8 g/dL (32-36); Mean Corpuscular Volume 90.2 fL (80-100); Mean Platelet Volume 10.2 fL (7.4-10.4); Monocytes # (auto) 0.95 K/uL (0.11-0.59); Monocytes % (auto) 6.4 %; Neutrophils # (auto) 12.07 K/uL (1.4-6.5); Neutrophils % (auto) 80.9 %; Platelet Count 283 K/uL (130-400); RDW Standard Deviation 42.4 fL (36.4-46.3); Red Blood Count 4.17 M/uL (4.7-6.1); White Blood Count 14.91 K/uL (4.8-10.8)
[2020-02-05 16:38] LABS: INR 1.1 (0.9-1.1); Partial Thromboplastin Time 28.2 Seconds (21.0-31.0); Prothrombin Time 11.5 Seconds (9.0-12.0)
[2020-02-05 16:45] LABS: Albumin Level 3.5 gm/dl (3.4-5.0); BUN Creatinine Ratio 13.7 (10-20); Calcium 8.7 mg/dl (8.5-10.1); Est GFR (African American) 102.1; Est GFR (Non-African American) 88.1; Magnesium 1.7 mg/dl (1.8-2.4)
[2020-02-05 16:48] LABS: Albumin Globulin Ratio 1.2 (0.9-2); Bilirubin,Total 0.5 mg/dl (0.2-1); Total Protein 6.5 gm/dl (6.4-8.2)
--- NOTE | 2020-02-05 17:01 | XRay Report ---
SINGLE VIEW PELVIS; 2 VIEWS LEFT FEMUR CLINICAL HISTORY: Fall. Left leg injury. FINDINGS: An AP supine view of the pelvis with AP and crosstable lateral views of the left femur are obtained. Comparison is made to study dated 12/13/2019. The skeletal structures are heterogeneously os teopenic. No fracture is seen involving the right hip or the bony pelvis. A bipolar left hip arthropl asty is in near-anatomic alignment. There is a comminuted spiral fracture of the proximal left femora l shaft located at and below the arthroplasty stem. There are laterally distracted fragments. The dis hayley femoral shaft is distracted laterally by approximately 2.5 cm. There is also overriding of the fr agments. Overlying soft tissue edema is noted. The left knee joint is grossly maintained. Mild degene rative joint space narrowing seen in the right hip. IMPRESSION: 1. There is a comminuted, distracted, and overriding spiral fracture of the proximal femoral shaft as above. This is located at and below the level of the left hip arthroplasty stem. 2. No fracture is seen involving the right hip or the bony pelvis. Electronically signed by: Ron Bryant M.D. 02/05/2020 5:00 PM
--- NOTE | 2020-02-05 17:02 | XRay Report ---
XR chest 1V portable CLINICAL HISTORY: Chest pain status post trauma COMPARISON STUDY: 11/27/2019 FINDINGS: The study is performed in a supine fashion. The cardiac and mediastinal contours appear nor mal given the technique. There is no focal pulmonary consolidation. There are no significant pleural effusions. There is no pneumothorax identified on the supine study.[ IMPRESSION: No active disease in the chest. ACT 112: Negative or not required by law. Electronically signed by: Jason Murdock M.D. 02/05/2020 5:00 PM
--- NOTE | 2020-02-05 17:15 | CT Scan Report ---
CT head/brain wo con CLINICAL HISTORY: Head pain status post trauma COMPARISON STUDY: No previous studies for comparison. TECHNIQUE: Axial CT of the brain is performed from the vertex to the skull base. IV contrast was not administered for this examination. A dose lowering technique was utilized adhering to the principles of ALARA. CT DOSE: FINDINGS: No intra or extra-axial mass lesions are visualized. There is no CT evidence of acute cortical infarc tion. There is no evidence of midline shift. There is no acute hemorrhage. No calvarial fractures ar e visualized. There is no evidence of pathologic ventricular dilatation. There is no evidence of acute sinusitis IMPRESSION: No acute intracranial findings ACT 112: Negative or not required by law. Electronically signed by: Jason Murdock M.D. 02/05/2020 5:14 PM
--- NOTE | 2020-02-05 17:17 | CT Scan Report ---
CT OF THE CERVICAL SPINE CLINICAL HISTORY: Neck pain status post trauma COMPARISON STUDY: MRI the cervical spine dated 04/21/2013 CT DOSE: 1100.84 mGy.cm TECHNIQUE: CT scan of the cervical spine was performed from the skull base to the thoracic inlet. Adelina ges are reviewed in the axial, sagittal, and coronal planes. IV contrast was not administered for thi s examination. A dose lowering technique was utilized adhering to the principles of ALARA. FINDINGS: The visualized portions of the lung apices reveal no evidence of pneumothorax. The prevertebral soft tissues are normal. No fractures or subluxations are visualized. There are multilevel degenerative changes IMPRESSION: No evidence of acute fracture or traumatic subluxation. ACT 112: Negative or not required by law. Electronically signed by: Jason Murdock M.D. 02/05/2020 5:15 PM
[2020-02-05] MEDS ORDERED: METOCLOPRAMIDE HCL INJ 5 MG/ML 2 ML VIAL IV PRN (17:18)
[2020-02-05] MEDS ORDERED: ALUMINUM/MAGNESIUM SUSP 30 ML UDC PO PRN (17:18)
[2020-02-05] MEDS ORDERED: ZOLPIDEM TARTRATE 5 MG TAB PO PRN (17:18)
[2020-02-05] MEDS ORDERED: OXYCODONE/ACETAMINOPHEN 5mg/325mg TAB PO PRN (17:18)
[2020-02-05] MEDS ORDERED: MAGNESIUM HYDROXIDE SUSP 30 ML UDC PO PRN (17:18)
[2020-02-05] MEDS ORDERED: ACETAMINOPHEN 325 MG TAB PO PRN (17:18)
[2020-02-05] MEDS ORDERED: ONDANSETRON INJ 2 MG/ML 2 ML VIAL IV PRN (17:18)
[2020-02-05] MEDS ORDERED: HYDROmorphone INJ 1 MG/ML SYRINGE IV PRN (17:23)
[2020-02-05] MEDS ORDERED: ONDANSETRON INJ 2 MG/ML 2 ML VIAL IV STA (17:40)
--- NOTE | 2020-02-05 18:42 | History & Physical Report ---
Date of Service February 05, 2020 Assessment & Plan (1) Periprosthetic fracture of hip: We will admit him to the orthopedic service. Unfortunately this will require surgical fixation. He will be n.p.o. past midnight tonight. We currently have him on the operating room schedule for an open reduction internal fixation of his left femur tomorrow. He understands the risks, benefits, and alternatives to procedure and is elected to proceed. Time was spent scribed procedure and postop expectations. Present on Admission?: Yes History of Present Illness Chief Complaint: Left periprosthetic femur fracture Primary Care Provider: Mylene Brown DO Brian is a pleasant 69-year-old male who underwent a left anterior total hip arthroplasty about 7 weeks ago. He was doing extremely well. He says he was up a ladder in his garage earlier this evening when he fell directly onto the concrete floor. He noticed significant pain and deformity of his left femur. He came to the emergency room and radiographs demonstrated a long periprosthetic femur fracture. He has been admitted to the hospital for definitive fixation tomorrow. Allergies Allergy/AdvReac Type Severity Reaction Status Date / Time No Known Allergies Allergy Verified 02/05/20 17:17 Home Medications Home Medications Medication Instructions Recorded Confirmed Type allopurinol 300 mg tablet 300 mg PO QAM 08/28/19 02/05/20 History ascorbic acid (vitamin C) 1,000 mg 500 mg PO BID 08/28/19 02/05/20 History tablet atorvastatin 20 mg tablet 20 mg PO QAM 08/28/19 02/05/20 History benazepril 40 mg tablet 40 mg PO QAM 08/28/19 02/05/20 History loratadine 10 mg tablet 10 mg PO DAILY PRN 08/28/19 02/05/20 History metoprolol succinate 25 mg capsule 25 mg PO QAM 08/28/19 02/05/20 History sprinkle, ext. release 24 hr lhpyfqdp-plr-wyqrp acid 0.4 1 tab PO QAM 08/28/19 02/05/20 History mg-lycopene 300 mcg-lutein 250 mcg tablet omeprazole 20 mg capsule,delayed 20 mg PO QAM 08/28/19 02/05/20 History release Past Med/Surg History Medical History Gout Hyperlipidemia Hypertension Obesity Sleep apnea CPAP HS Surgical History History of carpal tunnel release LEFT History of esophagogastroduodenoscopy (EGD) WITH DILITATION History of herniorrhaphy History of total left hip arthroplasty (~12/2019) Social History Smoking Status: Former smoker Smoking End Date: 1971; Second Hand Exposure: Yes (social occasions); Do You Dip or Chew Tobacco: No; Tobacco Cessation Education Requested by Patient: No Hx Alcohol Use: Yes Alcohol type: beer Hx Substance Use: No Preferred Language: Mongolian Communication Ability: Effective Nicu Rn Required: No Beliefs That Will Affect Care: None Current Living Situation: Spouse Other Information That Helps Us Care for You: No Feels Safe at Home: Yes Safety Concerns: Feels Safe At This Time Review of Systems Review of Systems: All systems reviewed & are unremarkable except as noted in HPI & below Physical Exam Constitutional: WD/WN, vitals as above Eyes: PERRL, conjunctivae normal, anicteric sclerae ENMT: external ear and nose normal, oropharynx normal Neck: trachea midline, no thyromegaly Respiratory: normal respiratory effort Cardiovascular: RRR, no murmur, no edema Gastrointestinal (Abdomen): normal bowel sounds, soft, nontender, no hepatosplenomegaly Musculoskeletal: On physical examination of the left leg, the left leg is shortened and externally rotated. He has significant pain with any range of motion of the left leg. He has active dorsiflexion plantarflexion of his left ankle. There are no abrasions, lesions, or lacerations of the skin. Psychiatric: A+Ox3, euthymic affect Results & Data Results & Data ([facility]) Vital Signs (Past 12 Hours) Vital Signs Temp Pulse Resp BP Pulse Ox 02/05/20 17:50 103 H 12 99 02/05/20 17:40 101 H 18 98 02/05/20 17:30 99 H 21 97 02/05/20 17:20 94 H 14 96 02/05/20 17:18 93 H 7 L 02/05/20 15:46 37.0 C 84 20 154/82 H 98 Diagnostic Findings X-rays of the left femur show the prosthesis to be in fairly good alignment without any signs of subsidence. There is a long oblique fracture of the fem oral shaft. Code Status & VTE Plan VTE Prophylaxis Plan VTE Prophylaxis will be ordered: Yes PG Care Time/CCT Total # of Minutes Spent Total Time Spent with Patient: Total time spent is greater than 50% in coordination of care (as documented) at patient's floor/unit and/or counseling patient: Coding Level of Care Code 73493 Initial Inpt Care Lvl 3 (25 - SIGNIFICANT, SEPARATELY IDENTIFIABLE ) Diagnoses Periprosthetic fracture of hip M97.8XXA; Z96.649 Encounter type: initial encounter (1) Periprosthetic fracture of hip Encounter type: initial encounter Qualified Code(s): M97.8XXA - Periprosthe tic fracture around other internal prosthetic joint, initial encounter; Z96.649 - Presence of unspecified artificial hip joint
[2020-02-05] MEDS ORDERED: LORATADINE 10 MG TAB PO PRN (19:28)
[2020-02-05] MEDS: SODIUM CHLORIDE 0.9% 1000ML 1,000 ML IV SCH (21:27)
[2020-02-05] MEDS: DOCUSATE SODIUM 100 MG CAP PO SCH (21:28)
[2020-02-05] MEDS: ASCORBIC ACID 500 MG TAB PO SCH (21:28)
[2020-02-06 02:40] LABS: Appearance Urine Clear (Clear); Bilirubin Urine Negative (Negative); Blood Urine Negative (Negative); Color Urine Yellow; Glucose Urine UA Negative (Negative); Ketones Urine 2+ (Negative); Leukocyte Esterase Urine Negative (Negative); Nitrite Urine Negative (Negative); Protein Urine Negative (Negative); Urobilinogen Urine Negative (Negative)
[2020-02-06] MEDS ORDERED: CEFAZOLIN 2000MG 2,000 MG/15 ML SYR IV SCH (06:00)
[2020-02-06] MEDS: ENALAPRIL MALEATE 10 MG TAB PO SCH (07:47)
[2020-02-06] MEDS: allopurinoL 300 MG TAB PO SCH (07:47)
[2020-02-06] MEDS: FERROUS SULFATE 325 MG TAB PO SCH ×3 (07:48→19:35)
[2020-02-06] MEDS: METOPROLOL SUCC 25MG EXT REL TAB PO SCH (07:48)
[2020-02-06] MEDS: CEROVITE ADV FORMULA TAB PO SCH (07:48)
[2020-02-06] MEDS: DOCUSATE SODIUM 100 MG CAP PO SCH ×3 (07:48→20:03)
[2020-02-06] MEDS: ATORVASTATIN 20 MG TAB PO SCH (07:48)
[2020-02-06] MEDS: PANTOprazole 40 MG TAB PO SCH (07:48)
[2020-02-06] MEDS: ASCORBIC ACID 500 MG TAB PO SCH ×2 (07:49→20:02)
[2020-02-06] MEDS ORDERED: NON-FORMULARY MEDICATION (Omeprazole 20 MG) PO SCH (09:00)
[2020-02-06] MEDS: SODIUM CHLORIDE 0.9% 1000ML 1,000 ML IV SCH ×3 (09:55→22:57)
[2020-02-06] MEDS ORDERED: LIDOCAINE HCL 2% 2 ML VIAL/AMP(20MG/ML) INFIL ONE (12:15)
[2020-02-06] MEDS ORDERED: PHENYLEPHRINE 100MCG/ML 5ML SYR ONE ×2 (12:15→15:41)
[2020-02-06] MEDS ORDERED: PROPOFOL IV EMULSION 10 MG/ML 20 ML VIAL IV ONE (12:15)
[2020-02-06] MEDS ORDERED: ePHEDrine sulfate 50 MG/ML SYR ONE (12:15)
[2020-02-06] MEDS ORDERED: fentaNYL citrate 100 MCG/2 ML VIAL ONE (12:16)
[2020-02-06] MEDS ORDERED: MIDAZOLAM HCL 1 MG/ML 2ML VIAL ONE ×2 (12:16)
--- NOTE | 2020-02-06 12:40 | Anesthesiology Consultation ---
Date of Service February 06, 2020 Assessment & Plan (1) Encounter for pre-operative examination: Chart Review Chart Review: Acceptable Risk for Surgery and Patient NOT seen in Pre Admission Testing Consults Requested none ASA ASA3 Proposed Anesthesia Anesthesia Type: General Risk / Benefits Reviewed With: PT / POA / Parent / Guardian, Accepts Plan and I nformed Consent Obtained History Surgery Operation Date: 02/06/20 14:25 Proposed Procedures p Left Plate Fixation Periprosthetic Fracture - Jaiden Mccurdy DO Height/Weight Height: 5 ft 10 in Weight: 118.4 kg Allergies Allergy/AdvReac Type Severity Reaction Status Date / Time No Known Allergies Allergy Verified 02/05/20 17:17 Medications Home Medications Medication Instructions Recorded Confirmed Last Taken allopurinol 300 mg tablet 300 mg PO QAM 08/28/19 02/05/20 12/13/19 07:00 ascorbic acid (vitamin C) 1,000 mg 500 mg PO BID 08/28/19 02/05/20 12/12/19 19:00 tablet atorvastatin 20 mg tablet 20 mg PO QAM 08/28/19 02/05/20 12/13/19 07:00 benazepril 40 mg tablet 40 mg PO QAM 08/28/19 02/05/20 12/12/19 07:00 loratadine 10 mg tablet 10 mg PO DAILY PRN 08/28/19 02/05/20 12/12/19 07:00 metoprolol succinate 25 mg capsule 25 mg PO QAM 08/28/19 02/05/20 12/13/19 07:00 sprinkle, ext. release 24 hr ccyjxhax-rlw-mzbvh acid 0.4 1 tab PO QAM 08/28/19 02/05/20 12/12/19 07:00 mg-lycopene 300 mcg-lutein 250 mcg tablet omeprazole 20 mg capsule,delayed 20 mg PO QAM 08/28/19 02/05/20 12/13/19 07:00 release Active Medications Generic Name Dose Route Start Last Admin Trade Name Freq PRN Reason Stop Dose Admin Allopurinol 300 mg 02/06/20 09:00 02/06/20 07:47 Zyloprim PO 03/07/20 08:59 300 mg QAM LORA Administration Ascorbic Acid 500 mg 02/05/20 21:00 02/06/20 07:49 Vitamin C PO 03/06/20 20:59 Not Given BID LORA Atorvastatin Calcium 20 mg 02/06/20 09:00 02/06/20 07:48 Lipitor PO 03/07/20 08:59 20 mg QAM LORA Administration Docusate Sodium 100 mg 02/05/20 21:00 02/06/20 07:48 Colace PO 03/06/20 20:59 100 mg BID LORA Administration Enalapril Maleate 40 mg 02/06/20 09:00 02/06/20 07:47 Vasotec PO 03/07/20 08:59 40 mg QAM LORA Administration Ferrous Sulfate 325 mg 02/06/20 08:00 02/06/20 12:32 Feosol PO 03/07/20 07:59 325 mg TIDM LORA Administration Hydromorphone HCl 1 mg 02/05/20 17:23 02/06/20 09:48 Dilaudid IV 02/19/20 17:22 1 mg Q2H PRN Administration Pain Sodium Chloride 1,000 mls @ 80 mls/hr 02/05/20 17:30 02/06/20 09:55 Nss 1000ml IV 03/06/20 17:29 80 mls/hr .[id number] LORA Administration Metoprolol Succinate 25 mg 02/06/20 09:00 02/06/20 07:48 Toprol Xl PO 03/07/20 08:59 25 mg QAM LORA Administration Multivitamins/Minerals 1 tab 02/06/20 09:00 02/06/20 07:48 Multivitamin W/ Minerals Tab PO 03/07/20 08:59 Not Given QAM LORA Pantoprazole Sodium 40 mg 02/06/20 09:00 02/06/20 07:48 Protonix PO 03/07/20 08:59 40 mg QAM LORA Administration NPO Date Last Intake of Fluids: 02/05/20 Time Last Intake of Fluids: 23:59 Date Last Intake of Solids: 02/05/20 Time Last Intake of Solids: 23:59 Past Medical History Medical History Gout Hyperlipidemia Hypertension Obesity Sleep apnea CPAP HS Exercise / Class Metabolic Activity II 4-5 Yardwork/Stairs/Walk up hill Past Surgical History Surgical History History of carpal tunnel release LEFT History of esophagogastroduodenoscopy (EGD) WITH DILITATION History of herniorrhaphy History of total left hip arthroplasty (~12/2019) Past Anesthesia History No Hx of Anesthesia Complications and No Family Hx of Anesthesia Complications History of PONV No Hx of PONV and No Hx of Motion Sickness Social History Smoking Status: Former smoker Do You Dip or Chew Tobacco: No Smoking End Date: 1971 Hx Alcohol Use: Yes Alcohol type: beer alcohol intake frequency: 3 or more drinks per day Hx Substance Use: No substance use type: does not use Review of Systems Negative for chest pain or shortness of breath. Patient denies active symptoms of GERD. Physical Exam Vital Signs Last Vital Signs Temp 36.5 C 02/06/20 07:25 Pulse 82 02/06/20 07:25 Resp 16 02/06/20 07:25 BP 130/69 02/06/20 07:25 Pulse Ox 99 02/06/20 07:25 Constitutional + obese ENMT Mouth: + dental restorations (capped teeth); no TMJ abnormality and oral opening not small Thyromental Distance: > or= 3.5 Finger Breadths Mallampati Class: II Neck normal visual inspection; neck extension not limited Respiratory normal respiratory effort Auscultation: lungs clear to auscultation bilaterally Cardiovascular Rate/Rhythm: regular rate and regular rhythm Heart Sounds: no murmur Neurologic moves all extremities Psychiatric Orientation: alert and oriented x 3 Testing Laboratory Results 02/05/20 16:16 02/05/20 16:16 PT 11.5 Seconds (9.0-12.0) 02/05/20 16:16 INR 1.1 (0.9-1.1) 02/05/20 16:16 APTT 28.2 Seconds (21.0-31.0) 02/05/20 16:16 Urine Color Yellow 02/06/20 02:30 Urine Appearance Clear (Clear) 02/06/20 02:30 Urine pH 7.0 (4.5-7.5) 02/06/20 02:30 Ur Specific [place] 1.020 (1.000-1.030) 02/06/20 02:30 Urine Protein Negative (Negative) 02/06/20 02:30 Urine Glucose (UA) Negative (Negative) 02/06/20 02:30 Urine Ketones 2+ (Negative) H 02/06/20 02:30 Urine Nitrite Negative (Negative) 02/06/20 02:30 Ur Leukocyte Esterase Negative (Negative) 02/06/20 02:30 Blood Type A Positive 02/05/20 16:16 Antibody Screen NEGATIVE 02/05/20 16:16 Other Testing Electrocardiogram Date: 11/27/19 Findings: + NSR @ (79bpm with 1st degree AV block) Chest X-Ray Date: 11/27/19 FINDINGS: The cardiac and mediastinal contours are normal. There is no evidence of focal pulmonary consolidation. There is no evidence of failure. No pleural effusions are visualized.[Degenerative changes are present within the dorsal spine. There is minimal basilar atelectasis. IMPRESSION: No active disease in the chest. Stress Test Date: 11/15/18 Type: exercise Resting EF: 55-59% The stress echo is negative for inducible ischemia. Resting study: No resting LV segmental wall motion abnormalities. RV cavity is moderately dilated. RV systolic function is moderately reduced. No significant valvular disease is present. The proximal ascending thoracic aorta is mildly enlarged.
--- NOTE | 2020-02-06 12:45 | History & Physical Bridge Note ---
Date of Service February 06, 2020 History & Physical Bridge Note I have examined the patient, reviewed the History & Physical and in the interval since the performance of the History & Physical I have noted the following changes of clinical significance: no changes noted
[2020-02-06] MEDS ORDERED: BUPIVACAINE/EPINEPHRINE 0.25% 1:200,000 30 ML VIAL ONE (13:10)
[2020-02-06] MEDS ORDERED: HYDROmorphone INJ 2 MG/ML SYR/VIAL IV PRN (13:17)
[2020-02-06] MEDS ORDERED: PROMETHAZINE HCL 12.5 MG in SODIUM CHLORIDE 0.9% 50 ML IV PRN (13:17)
[2020-02-06] MEDS ORDERED: ATROPINE SULFATE 0.1 MG/ML 10ML SYR IV PRN (13:17)
[2020-02-06] MEDS ORDERED: fentaNYL citrate 100 MCG/2 ML VIAL IV PRN (13:17)
[2020-02-06] MEDS ORDERED: ePHEDrine sulfate 50 MG/ML AMP IV PRN (13:17)
[2020-02-06] MEDS ORDERED: ONDANSETRON INJ 2 MG/ML 2 ML VIAL IV PRN ×2 (13:17→18:31)
[2020-02-06] MEDS ORDERED: NEOSTIGMINE METHYLSULFATE 5 MG/5 ML SYR ONE (14:19)
[2020-02-06] MEDS ORDERED: SUCCINYLCHOLINE CHLORIDE 20 MG/ML 10 ML VIAL IV ONE (14:19)
[2020-02-06] MEDS ORDERED: ONDANSETRON INJ 2 MG/ML 2 ML VIAL ONE (14:19)
[2020-02-06] MEDS ORDERED: DEXAMETHASONE SOD INJ 4 MG/ML VIAL ONE (14:19)
[2020-02-06] MEDS ORDERED: GLYCOPYRROLATE 0.2 MG/ML VIAL ONE (14:19)
[2020-02-06] MEDS ORDERED: ROCURONIUM BROMIDE 10 MG/ML 5 ML VIAL IV ONE ×4 (14:19→16:07)
[2020-02-06] MEDS ORDERED: LARYING-O-JET KIT (LTA) ONE (14:20)
[2020-02-06] MEDS ORDERED: HYDROmorphone INJ 2 MG/ML SYR/VIAL ONE (14:21)
[2020-02-06] MEDS ORDERED: SODIUM CHLORIDE 0.9% 250 ML IV PRN (14:40)
[2020-02-06 15:38] LABS: iSTAT Creatinine 0.7 mg/dl (0.6-1.3); iSTAT Hemoglobin 9.9 g/dl (14.0-18.0); iSTAT Ionized Calcium 1.22 mmol/l (1.12-1.32)
[2020-02-06] MEDS ORDERED: PHENYLEPHRINE HCL 10 MG/ML VIAL ONE (15:46)
--- NOTE | 2020-02-06 17:25 | Electrocardiogram Report ---
Test Reason : Blood Pressure : / mmHG Vent. Rate : 067 BPM Atrial Rate : 067 BPM P-R Int : 186 ms QRS Dur : 110 ms QT Int : 416 ms P-R-T Axes : 034 -07 024 degrees QTc Int : 439 ms Sinus rhythm with marked sinus arrhythmia Incomplete right bundle branch block Otherwise normal ECG When compared with ECG of 27-NOV-2019 11:16, FL interval has decreased Confirmed by Perry Parker ([id number]) on 02/06/2020 5:25:13 PM Referred By: REFERRED SELF Confirmed By:Xander Parker
--- NOTE | 2020-02-06 17:52 | Operative Report ---
PG Post Operative Report Pre & Post Diagnosis Operation Date: 02/06/20 14:25 Pre-Op Diagnosis: Periprosthetic Fracture of Left Hip Post-Op Diagnosis: Periprosthetic Fracture of Left Hip I identified the patient and participated in the time-out.: Yes Procedure Operation Date: 02/06/20 14:25 Actual Procedures p Left Plate Fixation Periprosthetic Fracture of Hip(Left) - Jaiden Mccurdy DO Surgeon Jaiden Mccurdy DO Testing And Regulating Chief Jaiden Verdin PAC Estimated Blood Loss 800 Findings Consistent with Post-Op Diagnosis Specimens None Complications none Disposition Disposition: Recovery Room Indications Brian is a pleasant 69-year-old male who underwent a left anterior total hip arthroplasty about 7 weeks ago. He was then in his garage and he was coming down a ladder. He missed the last step and fell hard onto the concrete. He sustained a left periprosthetic femur fracture. He was admitted to the orthopedic service. He elected to proceed with an open reduction internal fixation of the left femoral shaft. Description of Procedure On February 06, 2020 he was brought down from his hospital room to the preoperative holding area. The operative extremity was identified and signed. He was given a preoperative antibiotic. He was taken back to the operating room and laid on the table in supine position. He was put under general anesthesia. The left leg was then prepped and draped in sterile fashion. A timeout was done. The patient and the operative extremity was properly identified. A long longitudinal lateral incision was made. Dissection was taken down to the IT band and the IT band was incised. The vastus lateralis was then retracted anteriorly. The fracture was exposed. Time was spent ensuring that a good visualization of the fracture fragments. There was a three-part fracture. 3 Arthrex fiber tape cerclage sutures were used distally to hold the fracture together. 2 additional Arthrex fiber tape cerclage sutures were used to hold the more proximal fracture together. I was able to get an anatomic reduction with the cerclage sutures. A Synthes 14 hole 4.5 mm femoral locking plate was placed. The superior aspect of the plate was bent to allow contour to the greater trochanter. Once I was happy with the overall placement of the plate, a compression screw was placed centrally. Several additional compression screws were placed distally and the remainder of the holes were filled with locking screws. A single locking screw was placed in the most superior hole up into the greater trochanter. 2 Synthes cable eyelets were placed proximally. 2 additional Arthrex fiber tape cerclage were placed around the proximal plate. Multiple pictures were taken. The wound was then irrigated. Hemostasis was obtained. The fascia was then closed with #1 Vicryl suture. The surrounding soft tissues were injected with 60 cc of quarter percent Marcaine with epinephrine. The skin was then closed with 2-0 Vicryl and trudy. A soft dressing was placed. He was then extubated and transferred to a hospital bed. He was taken to the postanesthesia care unit in stable condition. He tolerated the procedure well. Jaiden Verdin PA-C, was present for the entire procedure. He was critical for patient positioning, prepping, draping, retraction exposure, wound closure and application of sterile dressing. I attest to the content of the Intraoperative Record and any orders documented therein. Any exceptions are noted below.
[2020-02-06 18:01] LABS: Hematocrit (blood only) 28.8 % (42-52); Hemoglobin 9.9 g/dL (14.0-18.0)
--- NOTE | 2020-02-06 18:10 | Anesthesiology Progress Note ---
Date of Service February 06, 2020 Anesthesia Post Procedure Vital Signs Vital Signs: Temp Pulse Pulse Pulse Resp BP Pulse Ox 02/06/20 17:55 75 20 99/52 L 94 02/06/20 17:45 77 16 108/55 L 100 02/06/20 17:39 97.3 F L 79 12 97/58 L 100 02/06/20 12:55 98.1 F 85 85 16 129/69 98 02/06/20 07:25 97.7 F 82 16 130/69 99 02/05/20 23:45 02/05/20 23:30 98.2 F 83 20 143/72 H 97 02/05/20 22:14 97.9 F 76 16 164/77 H 98 Pulse Ox 02/06/20 17:55 02/06/20 17:45 02/06/20 17:39 02/06/20 12:55 02/06/20 07:25 02/05/20 23:45 97 02/05/20 23:30 02/05/20 22:14 Pain Intensity Left Leg: Pain Intensity: 2 Transfer of Care Handoff Completed per policy Notes Mental Status: alert / awake / arousable and participated in evaluation Patient Amnestic to Procedure: Yes Nausea / Vomiting: adequately controlled Pain: adequately controlled Airway Patency, RR, SpO2: stable & adequate BP & HR: stable & adequate Hydration State: stable & adequate Anesthetic Complications: no major complications apparent and Pt Satisfied with anesthetic care
--- NOTE | 2020-02-06 18:15 | XRay Report ---
XR hip 1V LT w pelvis CLINICAL HISTORY: IN PACU - A/P PELVIS and LATERAL HIP COMPARISON: 02/05/2020 DISCUSSION: Interval placement of a metallic plate traversing the fracture of the proximal to mid fem oral shaft. Bony alignment appears to be anatomic. The pre-existing left hip arthroplasty is in good position. There is no evidence for soft tissue swel ling. IMPRESSION: Considerable improvement in alignment post open reduction and internal fixation of the pr oximal to mid left femoral shaft fracture. ACT 112: Negative or not required by law. The above report was generated using voice recognition software. It may contain grammatical, syntax or spelling errors. Electronically signed by: Maximo Ty M.D. 02/06/2020 6:14 PM
--- NOTE | 2020-02-06 18:16 | XRay Report ---
XR femur LT 2V routine CLINICAL HISTORY: post op orif femur postoperative evaluation COMPARISON: 02/05/2020 DISCUSSION: Interval placement of a long metallic plate traversing the fracture of the left femur. Mu ltiple orthogonal screws are present. Bony alignment and apposition considerably improved with alignment now considered anatomic. Expected postoperative soft tissue change. IMPRESSION: Anatomic alignment post open reduction internal fixation. ACT 112: Negative or not required by law. The above report was generated using voice recognition software. It may contain grammatical, syntax or spelling errors. Electronically signed by: Maximo Ty M.D. 02/06/2020 6:15 PM
--- NOTE | 2020-02-06 18:24 | Fluoroscopy Report ---
FL femur LT 2V CLINICAL HISTORY: LEFT HIP/FEMUR FX PLATE COMPARISON STUDY: 12/13/2019 FLUOROSCOPY TIME: 1 minute 6 seconds NUMBER OF FLUOROSCOPIC IMAGES: 6 FINDINGS: Operative placement of a plate traversing the fracture of the femur. Pre-existing total left hip arthroplasty is aligned anatomically. IMPRESSION: Anatomic alignment post left femoral plating procedure and realignment. ACT 112: Negative or not required by law. The above report was generated using voice recognition software. It may contain grammatical, syntax or spelling errors. Electronically signed by: Maximo Ty M.D. 02/06/2020 6:23 PM
[2020-02-06] MEDS ORDERED: METOCLOPRAMIDE HCL INJ 5 MG/ML 2 ML VIAL IV PRN (18:31)
[2020-02-06] MEDS ORDERED: NALOXONE HCL 0.4 MG/1 ML VIAL/CARP IV PRN (18:31)
[2020-02-06] MEDS ORDERED: bisacodyL 10 MG SUPP PR PRN (18:31)
[2020-02-06] MEDS ORDERED: MAGNESIUM HYDROXIDE SUSP 30 ML UDC PO PRN (18:31)
[2020-02-06] MEDS: SENNA 8.6 MG TAB PO SCH (20:02)
[2020-02-06] MEDS: KETOROLAC TROMETHAMINE 15 MG/ML VIAL IV SCH (20:02)
[2020-02-06] MEDS: ASPIRIN 81 MG ECTAB PO SCH (20:02)
[2020-02-06] MEDS: ACETAMINOPHEN 500 MG TAB PO SCH (21:04)
[2020-02-06 22:03] LABS: Hematocrit (blood only) 28.1 % (42-52); Hemoglobin 9.8 g/dL (14.0-18.0)
[2020-02-06] MEDS ORDERED: SODIUM CHLORIDE 0.9% 1000ML 500 ML IV ONE (22:20)
[2020-02-06] MEDS: CEFAZOLIN 2000MG 2,000 MG/15 ML SYR IV SCH (23:37)
[2020-02-07] MEDS: KETOROLAC TROMETHAMINE 15 MG/ML VIAL IV SCH ×4 (02:58→20:55)
[2020-02-07] MEDS ORDERED: COUGH DROP (SUGAR FREE) LOZ 24 LOZ/1 BOX BUCCAL PRN (03:33)
[2020-02-07] MEDS: SODIUM CHLORIDE 0.9% 1000ML 1,000 ML IV SCH (04:59)
[2020-02-07 05:57] LABS: Hematocrit (blood only) 22.7 % (42-52); Hemoglobin 7.8 g/dL (14.0-18.0); Immature Granulocytes # (auto) 0.02 K/uL (0.00-0.02); Immature Granulocytes % (auto) 0.2 %; Lymphocytes # (auto) 0.73 K/uL (1.2-3.4); Lymphocytes % (auto) 6.8 %; Mean Corpuscular Hemoglobin 31.2 pg (25-34); Mean Corpuscular Hgb Conc 34.4 g/dL (32-36); Mean Corpuscular Volume 90.8 fL (80-100); Mean Platelet Volume 9.9 fL (7.4-10.4); Monocytes # (auto) 1.34 K/uL (0.11-0.59); Monocytes % (auto) 12.6 %; Neutrophils # (auto) 8.57 K/uL (1.4-6.5); Neutrophils % (auto) 80.4 %; Platelet Count 240 K/uL (130-400); RDW Coefficient of Variation 13.3 % (11.5-14.5); RDW Standard Deviation 44.3 fL (36.4-46.3); White Blood Count 10.66 K/uL (4.8-10.8)
[2020-02-07] MEDS: ACETAMINOPHEN 500 MG TAB PO SCH ×3 (06:07→21:50)
[2020-02-07 06:17] LABS: RBC Morphology Unremarkable
[2020-02-07 06:26] LABS: BUN Creatinine Ratio 12.4 (10-20); Calcium 7.2 mg/dl (8.5-10.1); Est GFR (African American) 91.8; Est GFR (Non-African American) 79.2; Potassium 4.4 mmol/L (3.5-5.1)
[2020-02-07] MEDS: DOCUSATE SODIUM 100 MG CAP PO SCH ×4 (07:10→20:07)
[2020-02-07] MEDS: METOPROLOL SUCC 25MG EXT REL TAB PO SCH (07:47)
[2020-02-07] MEDS: ENALAPRIL MALEATE 10 MG TAB PO SCH (07:47)
[2020-02-07] MEDS: ASPIRIN 81 MG ECTAB PO SCH ×2 (07:51→20:07)
[2020-02-07] MEDS: ATORVASTATIN 20 MG TAB PO SCH (07:51)
[2020-02-07] MEDS: CEFAZOLIN 2000MG 2,000 MG/15 ML SYR IV SCH (07:51)
[2020-02-07] MEDS: FERROUS SULFATE 325 MG TAB PO SCH ×3 (07:51→17:32)
[2020-02-07] MEDS: allopurinoL 300 MG TAB PO SCH (07:52)
[2020-02-07] MEDS: PANTOprazole 40 MG TAB PO SCH (07:52)
[2020-02-07] MEDS: ASCORBIC ACID 500 MG TAB PO SCH ×2 (07:52→20:07)
[2020-02-07] MEDS: CEROVITE ADV FORMULA TAB PO SCH (07:52)
[2020-02-07] MEDS: MULTIVITAMIN TAB PO SCH (07:52)
[2020-02-07] MEDS ORDERED: dexAMETHasone 4 MG TAB PO SCH (08:00)
--- NOTE | 2020-02-07 08:16 | Anesthesiology Progress Note ---
Date of Service February 07, 2020 Anesthesia Post Procedure Vital Signs Vital Signs: Temp Pulse Pulse Pulse Pulse Resp BP 02/07/20 07:19 36.9 C 91 H 18 97/57 L 02/07/20 03:26 36.7 C 89 16 102/57 L 02/07/20 00:25 95/60 L 02/06/20 23:45 02/06/20 23:36 93/56 L 02/06/20 23:26 36.5 C 81 16 87/53 L 02/06/20 21:41 36.4 C L 86 16 94/59 L 02/06/20 20:30 36.5 C 80 16 101/59 L 02/06/20 19:30 36.4 C L 82 16 104/66 02/06/20 18:57 36.6 C 82 14 113/68 02/06/20 18:30 36.6 C 82 14 108/66 02/06/20 18:15 36.2 C L 70 19 104/50 L 02/06/20 18:05 77 13 121/57 L 02/06/20 17:55 75 20 99/52 L 02/06/20 17:45 77 16 108/55 L 02/06/20 17:39 36.3 C L 79 12 97/58 L 02/06/20 12:55 36.7 C 85 85 16 129/69 Pulse Ox Pulse Ox 02/07/20 07:19 95 02/07/20 03:26 94 02/07/20 00:25 02/06/20 23:45 95 02/06/20 23:36 02/06/20 23:26 95 02/06/20 21:41 98 02/06/20 20:30 98 02/06/20 19:30 100 02/06/20 18:57 96 02/06/20 18:30 99 02/06/20 18:15 99 02/06/20 18:05 98 02/06/20 17:55 94 02/06/20 17:45 100 02/06/20 17:39 100 02/06/20 12:55 98 Pain Intensity Left Leg: Pain Intensity: 2 Notes Mental Status: alert / awake / arousable and participated in evaluation Nausea / Vomiting: adequately controlled Pain: adequately controlled Airway Patency, RR, SpO2: stable & adequate BP & HR: stable & adequate Hydration State: stable & adequate Anesthetic Complications: no major complications apparent
--- NOTE | 2020-02-07 15:46 | Orthopedic Progress Note ---
Date of Service February 07, 2020 Assessment & Plan (1) Periprosthetic fracture of hip: Overall he is doing fairly well. He is a little bit tired. He has been hypotensive. His H&H was low so we will proceed with 2 units of packed red blood cells and repeat the H&H in the morning. He is to be nonweightbearing on the left leg. He can be touch toe weightbearing for transfers. He will be seen by physical therapy and Occupational Therapy. He will likely be with us for a few days before he can be discharged home. He is on aspirin for DVT prophylaxis. Present on Admission?: Yes Subjective Howie was seen and examined at bedside today. Overall he is doing fairly well. He does not feel like he can flex or move his hip at this time. He was not able to do much with physical therapy due to his hypotension. He is not having much pain in his hip. He has no new complaints. Physical Exam Musculoskeletal: On physical examination of the left hip, the dressing is clean and dry. His leg lengths are equal. He has active dorsiflexion and plantarflexion of his left ankle. His sensation is intact to his quad. Results & Data ([facility]) Vital Signs (Past 12 Hours) Vital Signs Temp Pulse Resp BP Pulse Ox 02/07/20 11:39 36.9 C 91 H 18 112/62 95 02/07/20 07:19 36.9 C 91 H 18 97/57 L 95 Laboratory Results H & H 02/05/20 02/06/20 02/06/20 Range/Units 16:16 17:48 21:57 Hgb 13.1 L 9.9 L D 9.8 L (14.0-18.0) g/dL Hct 37.6 L 28.8 L 28.1 L (42-52) % 02/07/20 Range/Units 05:24 Hgb 7.8 L (14.0-18.0) g/dL Hct 22.7 L (42-52) % Coagulation 02/05/20 Range/Units 16:16 INR 1.1 (0.9-1.1) Diagnostic Findings Postoperative x-rays of the left hip show the prosthesis to be in anatomic alignment without any evidence of fracture, dislocation, or loosening. PG Care Time/CCT Total # of Minutes Spent Total Time Spent with Patient: Total time spent is greater than 50% in coordination of care (as documented) at patient's floor/unit and/or counseling patient: Coding Level of Care Code None Diagnoses Periprosthetic fracture of hip M97.8XXA; Z96.649 Encounter type: initial encounter (1) Periprosthetic fracture of hip Encounter type: initial encounter Qualified Code(s): M97.8XXA - Periprosthetic fracture around other internal prosthetic joint, initial encounter; Z96.649 - Presence of unspecified artificial hip joint
[2020-02-07] MEDS ORDERED: SODIUM CHLORIDE 0.9% 250 ML IV PRN (16:00)
[2020-02-07] MEDS: SENNA 8.6 MG TAB PO SCH (20:07)
[2020-02-08] MEDS: KETOROLAC TROMETHAMINE 15 MG/ML VIAL IV SCH ×3 (01:44→13:49)
[2020-02-08] MEDS: ACETAMINOPHEN 500 MG TAB PO SCH ×3 (05:45→21:15)
[2020-02-08 06:22] LABS: Hematocrit (blood only) 25.1 % (42-52); Hemoglobin 9.1 g/dL (14.0-18.0)
--- NOTE | 2020-02-08 08:26 | Orthopedic Progress Note ---
Date of Service February 08, 2020 Assessment & Plan (1) Periprosthetic fracture of hip: Overall he is doing well. He feels much better since the blood transfusion. His hemoglobin is better today but his hematocrit is still little bit low. We will see how he does today symptomatically. He will see physical therapy today and learn some ADLs while being nonweightbearing. He can put his leg down to transfer but other than that I do not want him ambulating on the left leg. He is on aspirin for DVT prophylaxis. We will likely keep him in the hospital until Monday. He would like to go home at discharge. I will check a H&H tomorrow morning. If it drops at all from today we might give him 1 more unit of packed red blood cells. Present on Admission?: Yes Subjective The was seen and examined at bedside this morning. Overall he is doing very well. He feels much better since the blood transfusion. He is not having much pain in the left hip. He complains a little bit of difficulty flexing the left hip. Physical Exam Musculoskeletal: On physical examination of the left hip, the incision is clean and dry and the dressing was changed. He has active dorsiflexion plantarflexion of his left ankle. Sensations intact. Results & Data ([facility]) Vital Signs (Past 12 Hours) Vital Signs Temp Pulse Pulse Resp BP BP Pulse Ox 02/08/20 00:05 37.0 C 86 16 120/69 96 02/07/20 23:00 36.8 C 96 H 96 H 18 134/72 134/72 95 02/07/20 22:12 37.0 C 101 H 19 126/75 96 02/07/20 22:05 36.8 C 96 H 16 134/72 95 02/07/20 21:45 36.8 C 103 H 16 122/67 96 02/07/20 21:20 37.0 C 101 H 126/75 02/07/20 21:19 36.7 C 100 H 16 116/62 96 02/07/20 21:04 36.8 C 103 H 16 119/74 95 02/07/20 21:02 36.8 C 103 H 16 119/74 95 02/07/20 20:44 36.8 C 104 H 16 119/71 95 Laboratory Results H & H 08/05/20 08/06/20 08/06/20 Range/Units 16:16 17:48 21:57 Hgb 13.1 L 9.9 L D 9.8 L (14.0-18.0) g/dL Hct 37.6 L 28.8 L 28.1 L (42-52) % 02/07/20 02/08/20 Range/Units 05:24 05:21 Hgb 7.8 L 9.1 L (14.0-18.0) g/dL Hct 22.7 L 25.1 L (42-52) % Coagulation 02/05/20 Range/Units 16:16 INR 1.1 (0.9-1.1) PG Care Time/CCT Total # of Minutes Spent Total Time Spent with Patient: Total time spent is greater than 50% in coordination of care (as documented) at patient's floor/unit and/or counseling patient: Coding Level of Care Code None Diagnoses Periprosthetic fracture of hip M97.8XXA; Z96.649 Encounter type: initial encounter (1) Periprosthetic fracture of hip Encounter type: initial encounter Qualified Code(s): M97.8XXA - Periprosthetic fracture around other internal prosthetic joint, initial encounter; Z96.649 - Presence of unspecified artificial hip joint
[2020-02-08] MEDS: DOCUSATE SODIUM 100 MG CAP PO SCH ×4 (08:52→20:21)
[2020-02-08] MEDS: PANTOprazole 40 MG TAB PO SCH (08:53)
[2020-02-08] MEDS: CEROVITE ADV FORMULA TAB PO SCH (08:53)
[2020-02-08] MEDS: ASPIRIN 81 MG ECTAB PO SCH ×2 (08:53→20:21)
[2020-02-08] MEDS: ASCORBIC ACID 500 MG TAB PO SCH ×2 (08:53→20:20)
[2020-02-08] MEDS: MULTIVITAMIN TAB PO SCH (08:54)
[2020-02-08] MEDS: FERROUS SULFATE 325 MG TAB PO SCH ×3 (08:55→17:35)
[2020-02-08] MEDS: allopurinoL 300 MG TAB PO SCH (08:55)
[2020-02-08] MEDS: ATORVASTATIN 20 MG TAB PO SCH (08:55)
[2020-02-08] MEDS: ENALAPRIL MALEATE 10 MG TAB PO SCH (08:57)
[2020-02-08] MEDS: METOPROLOL SUCC 25MG EXT REL TAB PO SCH (08:58)
[2020-02-08] MEDS: SENNA 8.6 MG TAB PO SCH (20:21)
[2020-02-09] MEDS: OXYCODONE HCL IR 5 MG TAB (IMMEDIATE RELEASE) PO PRN ×5 (02:02→22:17)
[2020-02-09] MEDS: ACETAMINOPHEN 500 MG TAB PO SCH ×3 (05:29→21:14)
[2020-02-09 06:19] LABS: Hematocrit (blood only) 25.8 % (42-52); Hemoglobin 8.8 g/dL (14.0-18.0)
[2020-02-09] MEDS: PANTOprazole 40 MG TAB PO SCH (08:39)
[2020-02-09] MEDS: ASPIRIN 81 MG ECTAB PO SCH ×2 (08:39→21:15)
[2020-02-09] MEDS: MULTIVITAMIN TAB PO SCH (08:39)
[2020-02-09] MEDS: DOCUSATE SODIUM 100 MG CAP PO SCH ×3 (08:39→21:15)
[2020-02-09] MEDS: ASCORBIC ACID 500 MG TAB PO SCH ×2 (08:39→21:15)
[2020-02-09] MEDS: ENALAPRIL MALEATE 10 MG TAB PO SCH (08:40)
[2020-02-09] MEDS: CEROVITE ADV FORMULA TAB PO SCH (08:41)
[2020-02-09] MEDS: allopurinoL 300 MG TAB PO SCH (08:41)
[2020-02-09] MEDS: ATORVASTATIN 20 MG TAB PO SCH (08:41)
[2020-02-09] MEDS: METOPROLOL SUCC 25MG EXT REL TAB PO SCH (08:42)
[2020-02-09] MEDS: FERROUS SULFATE 325 MG TAB PO SCH ×3 (08:42→18:09)
--- NOTE | 2020-02-09 10:21 | Orthopedic Progress Note ---
Date of Service February 09, 2020 Assessment & Plan (1) Periprosthetic fracture of hip: Overall he is doing well. He is participating well with physical therapy. He is on aspirin for DVT prophylaxis. He is asymptomatic with regards to his anemia. He will be seen by physical therapy today for ambulation and range of motion exercises. As long as he remains asymptomatic we will not do any further blood transfusions, however, if he becomes lightheaded with physical therapy or if his blood pressures drop, we might consider adding another unit of packed red blood cells. I spoke to the nurse about this. At this point we are anticipating discharged home tomorrow. Present on Admission?: Yes Subjective Was seen and examined at bedside this morning. Overall he is doing very well. He says he feels much better today. He was having some pain last night but took some of the pain medications and that helped. He has been participating well with physical therapy. We are anticipating discharge to home tomorrow. Physical Exam Musculoskeletal: On physical examination of the left hip, the incision is clean and dry and trudy are open to air. He is sitting comfortably in a chair. He has active dorsiflexion and plantarflexion of his left ankle Results & Data ([facility]) Vital Signs (Past 12 Hours) Vital Signs Temp Pulse Pulse Resp BP Pulse Ox 02/09/20 08:00 36.9 C 85 18 132/72 99 02/08/20 23:43 36.9 C 80 18 123/70 98 Laboratory Results H & H 02/05/20 02/06/20 02/06/20 Range/Units 16:16 17:48 21:57 Hgb 13.1 L 9.9 L D 9.8 L (14.0-18.0) g/dL Hct 37.6 L 28.8 L 28.1 L (42-52) % 02/07/20 02/08/20 02/09/20 Range/Units 05:24 05:21 05:23 Hgb 7.8 L 9.1 L 8.8 L (14.0-18.0) g/dL Hct 22.7 L 25.1 L 25.8 L (42-52) % Coagulation 02/05/20 Range/Units 16:16 INR 1.1 (0.9-1.1) PG Care Time/CCT Total # of Minutes Spent Total Time Spent with Patient: Total time spent is greater than 50% in coordination of care (as documented) at patient's floor/unit and/or counseling patient: Coding Level of Care Code None Diagnoses Periprosthetic fracture of hip M97.8XXA; Z96.649 Encounter type: initial encounter (1) Periprosthetic fracture of hip Encounter type: initial encounter Qualified Code(s): M97.8XXA - Periprosthetic fracture around other internal prosthetic joint, initial encounter; Z96.649 - Presence of unspecified artificial hip joint
[2020-02-09] MEDS ORDERED: SODIUM CHLORIDE 0.9% 250 ML IV PRN (17:59)
[2020-02-09] MEDS: SENNA 8.6 MG TAB PO SCH (21:14)
[2020-02-09] MEDS ORDERED: Nursing to Pharmacy Communication SCH (22:30)
[2020-02-10] MEDS: DOCUSATE SODIUM 100 MG CAP PO SCH ×2 (01:06→08:59)
[2020-02-10] MEDS: OXYCODONE HCL IR 5 MG TAB (IMMEDIATE RELEASE) PO PRN ×3 (02:23→10:38)
[2020-02-10] MEDS: ACETAMINOPHEN 500 MG TAB PO SCH (05:57)
[2020-02-10 06:04] LABS: Hematocrit (blood only) 30.1 % (42-52); Hemoglobin 10.4 g/dL (14.0-18.0)
[2020-02-10] MEDS: ASCORBIC ACID 500 MG TAB PO SCH (08:59)
[2020-02-10] MEDS: MULTIVITAMIN TAB PO SCH (08:59)
[2020-02-10] MEDS: ASPIRIN 81 MG ECTAB PO SCH (08:59)
[2020-02-10] MEDS: PANTOprazole 40 MG TAB PO SCH (08:59)
[2020-02-10] MEDS: ATORVASTATIN 20 MG TAB PO SCH (09:00)
[2020-02-10] MEDS: FERROUS SULFATE 325 MG TAB PO SCH ×2 (09:00→11:46)
[2020-02-10] MEDS: METOPROLOL SUCC 25MG EXT REL TAB PO SCH (09:00)
[2020-02-10] MEDS: allopurinoL 300 MG TAB PO SCH (09:00)
[2020-02-10] MEDS: CEROVITE ADV FORMULA TAB PO SCH (09:00)
[2020-02-10] MEDS: ENALAPRIL MALEATE 10 MG TAB PO SCH (09:01)
--- NOTE | 2020-02-10 14:08 | Orthopedic Progress Note ---
Date of Service February 10, 2020 Assessment & Plan (1) Periprosthetic fracture of hip: Overall he is doing very well. He has been compliant with physical therapy and his nonweightbearing instructions. He is on aspirin for DVT prophylaxis. His H&H has returned to near normal. He is feeling well. We are going to discharge him to home today. He understands that he will be nonweightbearing for close to 3 months on the left leg. He will follow-up with orthopedics in 2 weeks for staple removal. Present on Admission?: Yes Subjective Howie was seen and examined at bedside this morning. Overall he is doing very well. He feels much better after receiving second 2 units of blood. His pain is well controlled. He is working well with physical therapy. He has no complaints. Physical Exam Musculoskeletal: On physical examination of the left leg, the incision is clean and dry and trudy are open to air. He is neurovascularly intact. He is sitting comfortably in a chair at bedside. Results & Data ([facility]) Vital Signs (Past 12 Hours) Vital Signs Temp Pulse Resp BP Pulse Ox 02/10/20 07:25 37.0 C 87 18 118/72 96 Diagnostic Findings H & H 02/05/20 02/06/20 02/06/20 Range/Units 16:16 17:48 21:57 Hgb 13.1 L 9.9 L D 9.8 L (14.0-18.0) g/dL Hct 37.6 L 28.8 L 28.1 L (42-52) % 02/07/20 02/08/20 02/09/20 Range/Units 05:24 05:21 05:23 Hgb 7.8 L 9.1 L 8.8 L (14.0-18.0) g/dL Hct 22.7 L 25.1 L 25.8 L (42-52) % 02/10/20 Range/Units 05:23 Hgb 10.4 L (14.0-18.0) g/dL Hct 30.1 L (42-52) % Coagulation 02/05/20 Range/Units 16:16 INR 1.1 (0.9-1.1) PG Care Time/CCT Total # of Minutes Spent Total Time Spent with Patient: Total time spent is greater than 50% in coordination of care (as documented) at patient's floor/unit and/or counseling p atient: Coding Level of Care Code None Diagnoses Periprosthetic fracture of hip M97.8XXA; Z96.649 Encounter type: initial encounter (1) Periprosthetic fracture of hip Encounter type: initial encounter Qualified Code(s): M97.8XXA - Periprosthetic fracture around other internal prosthetic joint, initial encounter; Z96.649 - Presence of unspecified artificial hip joint
--- NOTE | 2020-02-10 14:09 | Discharge Summary ---
Date of Service February 10, 2020 Admission HPI Per Admitting Provider Brian is a pleasant 69-year-old male who underwent a left anterior total hip arthroplasty about 7 weeks ago. He was doing extremely well. He says he was up a ladder in his garage earlier this evening when he fell directly onto the concrete floor. He noticed significant pain and deformity of his left femur. He came to the emergency room and radiographs demonstrated a long periprosthetic femur fracture. He has been admitted to the hospital for definitive fixation tomorrow. Principal Diagnosis Left periprosthetic hip fracture Discharge Data Allergies Allergy/AdvReac Type Severity Reaction Status Date / Time No Known Allergies Allergy Verified 02/05/20 17:17 Consultations 02/07/20 08:00 Consult Case Management - Discharge Planning Routine Procedures Performed Operation Date: 02/06/20 14:25 Actual Procedures p Left Plate Fixation Periprosthetic Fracture of Hip(Left) - Jaiden Mccurdy, Ordered Studies 02/05/20 16:00 CT cervical spine wo con Stat CT head/brain wo con Stat 02/06/20 12:00 FL femur LT 2V Routine FL fluoroscopy <1hr Routine Hospital Course (1) Periprosthetic fracture of hip: On February 05, 2020 Brian arrived at [facility] with a francisco javier prosthetic left hip fracture. He had a fall from a ladder. He was admitted to the orthopedic service. The following day he underwent an open reduction internal fixation of his left periprosthetic hip fracture without complication. Postoperatively he was started on aspirin for DVT prophylaxis and transferred to the general orthopedic floors. His hospital course was relatively uneventful. On postop day #1 his H&H was low and he was feeling a little lightheaded and washed out. We decided to proceed with 2 units of blood red blood cells. This made him feel much better. He did not do much with physical therapy on postop day #1. On postop day #2 he was feeling well. His H&H was more stable. He was able to participate fairly well with physical therapy. The dressing was changed and incision was clean and dry. On postop day #3 he began feeling hypertensive again. His H&H has dropped a little bit. We decided to give him another 2 units of packed red blood cells. This made him feel much better and continue to work well with physical therapy. On postop day #4 he was feeling well. He worked well once again with physical therapy. His incision looked good. He was able to follow the nonweightbearing instructions. He was then discharged home. He will follow-up with orthopedics in 2 weeks. Total Time Total Time Spent Total Time Spent (In Minutes): 20 Discharge Plan Discharge Items Patient Disposition: Home - Home Health Services Reason For Visit: L FEMUR FRACTURE Discharge Diagnosis: Left periprosthetic femur fracture Condition on Discharge: Good Activity: As commented below Non-emergency contact: Surgeon Call non-emergency contact if: your temperature is above 101.5 and your wound has increased redness Follow-up/Referrals: Mylene Brown, [Primary Care Provider] - Diet: Regular Addtl Attending Provider Instructions: Nonweightbearing on right leg Follow-up with Dr. Mccurdy in 2 weeks for staple removal Pending Studies at Discharge: No Stand-Alone Forms: [facility] [employer], Smoking Cessation Medications and DC Order Prescriptions: New aspirin 81 mg Tablet,Delayed Release (Dr/Ec) 81 mg PO BID 42 Days Qty: 0 RF: 0 Continued allopurinol 300 mg tablet 300 mg PO QAM RF: 0 atorvastatin 20 mg tablet 20 mg PO QAM RF: 0 benazepril 40 mg tablet 40 mg PO QAM RF: 0 loratadine [Allergy Relief (loratadine)] 10 mg tablet 10 mg PO DAILY PRN (Reason: Allergy Symptoms) RF: 0 metoprolol succinate 25 mg capsule,sprinkle,ER 24hr 25 mg PO QAM RF: 0 omeprazole 20 mg capsule,delayed release(DR/EC) 20 mg PO QAM RF: 0 ascorbic acid (vitamin C) 1,000 mg tablet 500 mg PO BID RF: 0 Centrum Silver 0.4-300-250 mg-mcg-mcg tablet 1 tab PO QAM RF: 0 Discharge Orders: Discharge Order (Routine); Ordered 02/10/20 Ordered By: Jaiden Ivan/Other Patient Handouts: Preventing Deep Vein Thrombosis Admission Data Admit Date/Time: 02/05/20 17:19 Attending Provider: Jaiden Mccurdy Admit Provider: Cezar Brooks Primary Care Provider: Mylene Brown Other Interventions: Discharge Summary Assessment (RN) Last Done: 02/10/20 10:02 DC Date/Time DO NOT enter until pt leaves facility: 02/10/20 12:20 Coding Level of Care Code D/C Day Management <30 mins Diagnoses Periprosthetic fracture of hip M97.8XXA; Z96.649 Encounter type: initial encounter
== END 2020-02-10 12:20 | disposition home health service (06) | DRG 481 ==
LOC: ED 15:25 → 3W 17:19